=== PATIENT | male | born 1955 | race Caucasian/White ===

== ENCOUNTER → 2016-11-26 | Outpatient (CLI) | payer OTHER ==
[~2016-11-26] MED LIST: ASCA500 PO; ASPI1TAB83 PO; CARV25TA2 PO; DVN/160 PO; FLCO60 TOP; MELO15TA4 PO
[2016-11-26 13:32] LABS: BASO % 0.7 %; BASO ABS # 0.05 K/uL (0-0.2); COMPLETE YES; EOS % 3.3 %; HEMATOCRIT 44.4 % (42-52); IG% 0.4 %; LYMPH % 24.3 %; LYMPH ABS # 1.71 K/uL (1.2-3.4); MEAN CELL VOLUME 93.9 fL (80-100); MEAN CORPUSCULAR HEMOGLOBIN 31.9 pg (25-34); MONO % 8.4 %; NEUT % 62.9 %; PLATELET COUNT 150 K/uL (130-400); RED BLOOD COUNT 4.73 M/uL (4.7-6.1); WHITE BLOOD COUNT 7.04 K/uL (4.8-10.8)
[2016-11-26 13:50] LABS: ALT/SGPT 23 U/L (12-78); AST/SGOT 11 U/L (15-37); BLOOD UREA NITROGEN 13 mg/dl (7-18); BUN/CREATININE RATIO 16.4 (10-20); CALCIUM 8.9 mg/dl (8.5-10.1); CARBON DIOXIDE 27 mmol/L (21-32); CHLORIDE 108 mmol/L (98-107); CREATININE 0.82 mg/dl (0.60-1.40); GLUCOSE 123 mg/dl (70-99); POTASSIUM 4.3 mmol/L (3.5-5.1); SODIUM 139 mmol/L (136-145)
[2016-11-26 13:55] LABS: ALB/GLOB RATIO 1.5 (0.9-2); ALKALINE PHOSPHATASE 79 U/L (45-117); CHOLESTEROL 164 mg/dl (0-200); CHOLESTEROL/HDL RATIO 2.6; HDL CHOLESTEROL 63 mg/dl; LDL CHOLESTEROL CALCULATED 87 mg/dl; TRIGLYCERIDES 68 mg/dl (0-150); VERY LOW DENSITY LIPOPROT CALC 14 mg/dl
[2016-11-26 14:43] LABS: ESTIMATED AVERAGE GLUCOSE 117 mg/dl; HA1C FLAG Normal (Normal)
== END | disposition home or self-care (01) ==
LOC: C.LABBC 09:30
PROVIDERS: ATTEND Internal Medicine
DX: Z00.00 Encounter for general adult medical examination without abnormal findings (principal); F10.10 Alcohol abuse, uncomplicated; M19.90 Unspecified osteoarthritis, unspecified site; I10 Essential (primary) hypertension; Z12.5 Encounter for screening for malignant neoplasm of prostate; R73.9 Hyperglycemia, unspecified; Z11.59 Encounter for screening for other viral diseases

== ENCOUNTER 2023-02-25 10:18 | Observation (INO) ==
--- NOTE | 2023-01-12 12:10 | PAT Medication Instructions ---
Medication Instructions Date of Service January 12, 2023 Home Medications Medication Instructions Recorded atorvastatin 10 mg tablet 10 mg PO QAM #90 tabs 07/05/22 pantoprazole 40 mg tablet,delayed See Rx Instructions .Route 07/16/22 release .COMPLEX #180 tabs losartan 100 See Rx Instructions .Route 09/06/22 mg-hydrochlorothiazide 25 mg tablet .COMPLEX #90 tabs carvedilol 25 mg tablet See Rx Instructions .Route 10/04/22 .COMPLEX #180 tabs aspirin 81 mg tablet 81 mg PO QPM acetaminophen 650 mg tablet,extended release (Tylenol Arthritis Pain) 650 mg PO UD PRN Pain fluocinonide 0.05 % topical cream 1 applic topical UD PRN EXZEMA loratadine 10 mg capsule 10 mg PO UD PRN SEASONAL ALLERGIES atorvastatin 10 mg tablet 10 mg PO QAM pantoprazole 40 mg tablet,delayed release See Rx Instructions .Route .COMPLEX losartan 100 mg-hydrochlorothiazide 25 mg tablet See Rx Instructions .Route .COMPLEX carvedilol 25 mg tablet See Rx Instructions .Route .COMPLEX ibuprofen 200 mg tablet 200 mg PO Q6H PRN Pain ASK your surgeon for instructions ibuprofen 200 mg tablet 200 mg PO Q6H PRN Pain STOP taking 24 hours before surgery fluocinonide 0.05 % topical cream 1 applic topical UD PRN EXZEMA DO NOT take the morning of surgery loratadine 10 mg capsule 10 mg PO UD PRN SEASONAL ALLERGIES losartan 100 mg-hydrochlorothiazide 25 mg tablet See Rx Instructions .Route .COMPLEX Take morning of surgery With a small sip of water, OTHERWISE NOTHING TO EAT OR DRINK AFTER MIDNIGHT: acetaminophen 650 mg tablet,extended release (Tylenol Arthritis Pain) 650 mg PO UD PRN Pain (if needed) atorvastatin 10 mg tablet 10 mg PO QAM pantoprazole 40 mg tablet,delayed release See Rx Instructions .Route .COMPLEX carvedilol 25 mg tablet See Rx Instructions .Route .COMPLEX Take evening before surgery aspirin 81 mg tablet 81 mg PO QPM (continue as normal unless told otherwise by surgeon) acetaminophen 650 mg tablet,extended release (Tylenol Arthritis Pain) 650 mg PO UD PRN Pain (if needed) loratadine 10 mg capsule 10 mg PO UD PRN SEASONAL ALLERGIES (if needed) pantoprazole 40 mg tablet,delayed release See Rx Instructions .Route .COMPLEX carvedilol 25 mg tablet See Rx Instructions .Route .COMPLEX Other Notes If you have any questions please call us at [phone] or [phone] or [phone] or [phone]
--- NOTE | 2023-01-17 08:24 | Anesthesiology Consultation ---
Date of Service January 17, 2023 Assessment & Plan (1) Encounter for pre-operative examination: - awaiting [facility] pre-operative evaluation being scheduled and completed and [place] [facility] 01/25/23 pre-operative evaluation. - EF 35-40% per remote cardiology records, no available echo, no cardiology evaluation. PCP pre-operative evaluation 01/25/23. Patient confirms he is no longer following with cardiology and has not had further testing since last seeing cardiology. Case discussed in detail with Dr. Gao who advised patient will need a cardiology evaluation prior to surgery. Patient was made aware of this at PAT appointment. He verbalized understanding and agreement, would like to establish care with [facility]. Surgeon's office made aware. - combativeness after anesthesia. Marked on OR sheet. - alcohol dependence: 6 beers daily. - anticipated difficult intubation: severely limited cervical extension s/p cervical spine surgery, small oral opening and Mallampati 3. - Outpatient joint assessment: Patient is currently scheduled for inpatient pathway. If re-evaluated and patient/surgeon requests outpatient pathway, patient is not recommended candidate for outpatient joint program from anesthesia standpoint based on current available information. Chart Review Chart Review: Pending: Refer to Additional Notes / Consult section and Patient seen in Pre Admission Testing Teaching & Discussion Pre-Anesthesia Teaching/Discussion Notes: Instructed NPO after midnight before surgery, except medications with 15 cc of water. Medication instructions provided according to the [facility] guidelines. History Surgery Operation Date: 02/25/23 09:00 Proposed Procedures p Left Total Knee Arthroplasty - Benjamin Pollock, Height/Weight Height: 5 ft 10 in Weight: 95.8 kg Allergies Allergy/AdvReac Type Severity Reaction Status Date / Time No Known Allergies Allergy Verified 01/11/23 07:35 Medications Home Medications Medication Instructions Recorded Confirmed Last Taken aspirin 81 mg tablet 81 mg PO QPM 12/28/18 01/11/23 01/27/21 08:00 acetaminophen 650 mg 650 mg PO UD PRN Pain 01/22/21 01/11/23 Unknown tablet,extended release (Tylenol Arthritis Pain) fluocinonide 0.05 % topical cream 1 applic topical UD PRN EXZEMA 01/22/21 01/11/23 Unknown loratadine 10 mg capsule 10 mg PO UD PRN SEASONAL ALLERGIES 01/22/21 01/11/23 Unknown atorvastatin 10 mg tablet 10 mg PO QAM #90 tabs 07/05/22 01/11/23 Unknown pantoprazole 40 mg tablet,delayed See Rx Instructions .Route 07/16/22 01/11/23 Unknown release .COMPLEX #180 tabs losartan 100 See Rx Instructions .Route 09/06/22 01/11/23 Unknown mg-hydrochlorothiazide 25 mg tablet .COMPLEX #90 tabs carvedilol 25 mg tablet See Rx Instructions .Route 10/04/22 01/11/23 Unknown .COMPLEX #180 tabs ibuprofen 200 mg tablet 200 mg PO Q6H PRN Pain 01/11/23 01/11/23 Unknown Past Medical History Medical History (Updated 01/17/23 @ 08:48 by Nicole Zapata PA-C) Acid reflux controlled, stable per pt BMI 31.0-31.9,adult Cardiomyopathy, nonischemic EF < 40% per remote records Essential hypertension controlled, stable per pt Expected difficult intubation severely limited cervical extension s/p cervical spine surgery, small oral opening and Mallampati 3. History of anesthesia reaction very combative after cervical fusion History of colon polyps Hyperlipidemia Inguinal hernia stable per pt Lumbosacral radiculopathy at S1 Non-occlusive coronary artery disease does not follow w/ cardio Patient denies h/o stroke, seizures, heart attack, DM, blood clots/DVTs or blood transfusions. Exercise / Class Metabolic Activity III < 4 Walking/Shop/Light housework (less than 8 steps in home, denies chest discomfort or shortness of breath with usual activities) Past Family History Family History Father Throat cancer Alcohol abuse Cardiac disorder Hypertension Sister Alcohol abuse Other Family history of diabetes mellitus Myocardial infarction Past Surgical History Surgical History History of cardiac cath 2006 ? , HIGH BLOOD PRESSURE...NO STENTS History of cataract surgery BILATERAL History of esophagogastroduodenoscopy (EGD) History of fusion of cervical spine 1970 AND 1971/ LIMITED ROM History of total knee replacement 2001, RIGHT Hx of colonoscopy Past Anesthesia History No Family Hx of Anesthesia Complications and Other (combativeness after anesthesia) History of PONV No Hx of PONV and No Hx of Motion Sickness Social History Smoking Status: Current every day smoker tobacco type: cigars Smoking cigarettes per day: "TINY ONES" 3 PER DAY / ADVISED NPO Do You Dip or Chew Tobacco: No (HX OF , NOT CURRENT) Hx Alcohol Use: Yes ("6 pack per day") Alcohol type: beer alcohol intake frequency: 3 or more drinks per day (denies withdrawal, denies h/o DTs or seizures) Hx Substance Use: No substance use type: does not use Review of Systems Rare palpitations with caffeine intake, chronic, denies change or worsening. Patient denies chest pain, shortness of breath, dyspnea on exertion, snoring, witnessed apneas, fever, chills, cough, or wheezing. Physical Exam Vital Signs Vitals BP 138/88 P 70 TEMP 97.9 SP02 96% on RA RESP 18 Physical Patient resting comfortably in chair in no acute distress, alert and oriented, responding appropriately throughout visit Severely limited cervical extension range of motion without pain TMD < 3 finger breadths Mallampati Score 3, small oral opening Dentition: several caps/crowns, denies chipped or loose teeth, implants or bridges Lungs: normal respiratory effort. Good air movement, clear throughout to auscultation, no adventitious breath sounds Cardiac: regular rate and rhythm, no murmurs noted Carotid arteries: negative bruit bilat Lab Results Anesthesia Preop Results Results Anesthesia Widget: WBC 9.49 K/ul (4.8-10.8) 01/17/23 Hgb 14.2 g/dl (14.0-18.0) 01/17/23 Hct 40.9 % (42.0-52.0) L 01/17/23 Plt 164 K/uL (130-400) 01/17/23 Na 136 mmol/L (136-145) 01/17/23 K 3.4 mmol/L (3.5-5.1) L 01/17/23 Cl 101 mmol/L (98-107) 01/17/23 CO2 30 mmol/L (21-32) 01/17/23 BUN 13 mg/dl (6-23) 01/17/23 Creat 0.60 mg/dl (0.6-1.4) 01/17/23 Glucose Level 106 mg/dl (70-99(Fasting)) H 01/17/23 PT 10.8 Seconds (9.0-12.0) 01/17/23 PTT 29.1 Seconds (21.0-31.0) 01/17/23 INR 1.0 (0.9-1.1) 01/17/23 Blood Type O Negative 01/17/23 Antibody Screen NEGATIVE 01/17/23 Testing Electrocardiogram Date: 01/17/23 NSR, rate 67 bpm Voltage criteria for LVH Minor nonspecific ST abnormality inferior leads Chest X-Ray Date: 01/17/23 No active disease in the chest
--- NOTE | 2023-02-24 06:46 | History & Physical Report ---
Date of Service February 24, 2023 Assessment & Plan (1) Osteoarthritis of left knee: We will proceed with a left total knee arthroplasty. Postoperatively he will be started on aspirin for DVT prophylaxis and kept overnight in the hospital for postop medical management. He plans to go to inpatient rehab upon discharge. History of Present Illness Chief Complaint: Osteoarthritis of the left knee. Primary Care Provider: Aaron Miller, ALVIN, RADHA Melvin is a pleasant 67-year-old male who has been dealing with chronic increase in left knee pain. He has a history of a right knee replacement done in 2001 in [place]. He has done well with that. Unfortunately, he is dealing with a lot of increasing left knee pain. He is having trouble going long distances. He is having trouble going up and down stairs. It hurts him all the time. It is starting to bother his hip and his back. He has been taking anti- inflammatories. He has had injections by other providers. He is really struggling with his left knee. X-rays and clinical examination been diagnostic for advanced osteoarthritis of the left knee. After failed conservative treatment, he has elected to proceed with a left total knee arthroplasty. Allergies Allergy/AdvReac Type Severity Reaction Status Date / Time No Known Allergies Allergy Verified 02/04/23 09:28 Home Medications Medication Instructions Recorded Confirmed Type aspirin 81 mg tablet 81 mg PO QPM 12/28/18 02/04/23 History acetaminophen 650 mg 650 mg PO UD PRN Pain 01/22/21 02/04/23 History tablet,extended release (Tylenol Arthritis Pain) fluocinonide 0.05 % topical cream 1 applic topical UD PRN EXZEMA 01/22/21 02/04/23 History loratadine 10 mg capsule 10 mg PO UD PRN SEASONAL ALLERGIES 01/22/21 02/04/23 History atorvastatin 10 mg tablet 10 mg PO QAM #90 tabs 07/05/22 02/04/23 Rx pantoprazole 40 mg tablet,delayed See Rx Instructions .Route 07/16/22 02/04/23 Rx release .COMPLEX #180 tabs losartan 100 See Rx Instructions .Route 09/06/22 02/04/23 Rx mg-hydrochlorothiazide 25 mg tablet .COMPLEX #90 tabs carvedilol 25 mg tablet See Rx Instructions .Route 10/04/22 02/04/23 Rx .COMPLEX #180 tabs ibuprofen 200 mg tablet 200 mg PO Q6H PRN Pain 01/11/23 02/04/23 History diph,pertuss(acel),tet vac(PF) 2 0.5 ml IM ONCE #0.5 mL 01/25/23 02/04/23 Rx Lf-(2.5-5-3-5mcg)-5 Lf/0.5 mL IM syringe (Adacel (Tdap Adolesn/Adult)(PF)) Past Med/Surg History Medical History Acid reflux controlled, stable per pt BMI 31.0-31.9,adult Cardiomyopathy, nonischemic EF < 40% per remote records Colon polyps Essential hypertension controlled, stable per pt Expected difficult intubation severely limited cervical extension s/p cervical spine surgery, small oral opening and Mallampati 3. History of anesthesia reaction very combative after cervical fusion History of colon polyps Hyperlipidemia Ileitis Inguinal hernia stable per pt Lumbosacral radiculopathy at S1 Non-occlusive coronary artery disease Surgical History History of cardiac cath 2006 ? , HIGH BLOOD PRESSURE...NO STENTS History of cataract surgery BILATERAL History of esophagogastroduodenoscopy (EGD) History of fusion of cervical spine 1970 AND 1971/ LIMITED ROM History of total knee replacement 2001, RIGHT Hx of colonoscopy Family History Father Throat cancer Alcohol abuse Cardiac disorder Hypertension Sister Alcohol abuse Other Family history of diabetes mellitus Myocardial infarction Social History Smoking Status: Current every day smoker Tobacco Type: Cigarettes Age Started Using Tobacco: 16; Cigarettes Per Day: "TINY ONES" 3 PER DAY / ADVISED NPO; Second Hand Exposure: Yes (IN THE PAST); Do You Dip or Chew Tobacco: No (HX OF , NOT CURRENT); Hx Alcohol Use: Yes ("6 pack per day") Alcohol type: beer Alcohol Intake Frequency Comment: 5 PER DAY/30 PER WEEK Hx Substance Use: No Preferred Language: Armenian Communication Ability: Effective Visual Impairment: No Limitations Hearing Ability: Normal [employer] Required: No Beliefs That Will Affect Care: None marital status: Current Living Situation: Alone current occupational status: employed current occupation: SELF EMPLOYED Feels Safe at Home: Yes Childhood Exposure to Second-Hand Smoke: Yes Dental Care, Regularly: Yes Physical Activity Frequency: Does not Exercise Seatbelt Use: never Sunscreen Use: No Assistive Devices: None Review of Systems All systems reviewed & are unremarkable except as noted in HPI & below. Physical Exam On physical examination left knee, he has a slight varus deformity. He has tenderness palpation of the distal medial femoral condyle and over the medial joint line.. Constitutional WD/WN, vitals as above Eyes PERRL, conjunctivae normal, anicteric sclerae ENMT external ear and nose normal, oropharynx normal Neck trachea midline, no thyromegaly Respiratory normal respiratory effort, lungs clear to auscultation Cardiovascular RRR, no murmur, no edema Gastrointestinal (Abdomen) normal bowel sounds, soft, nontender, no hepatosplenomegaly Skin no rashes, warm and dry Psychiatric A+Ox3, euthymic affect Results & Data Results & Data Laboratory Results . Diagnostic Findings X-rays of the left knee show advanced osteoarthritis with joint space narrowing, osteophyte formation, and [id number] articulation. PG Care Time/CCT Total # of Minutes Spent Total Time Spent with Patient: Total time spent is greater than 50% in coordination of care (as documented) at patient's floor/unit and/or counseling patient: Coding Level of Care Code None Diagnoses Osteoarthritis of left knee M17.12
[~2023-02-25 10:18] MED LIST changes: +ACETAMINOPHEN 500 MG TAB PO SCH; -ASCA500 PO; -ASPI1TAB83 PO; -CARV25TA2 PO; -DVN/160 PO; +FAMOTIDINE 20 MG TAB PO SCH; -FLCO60 TOP; +GABAPENTIN 300 MG CAP PO SCH; +Ketorolac (*for OR use only*) 30 MG, dexAMETHasone 4 MG, KETAMINE HCL (**OR use only) 1... INFIL SCH; +LR 500ML BOLUS, THEN 15ML/HR IV SCH; +LR 60ML/HR IV SCH; -MELO15TA4 PO; +ROPIVACAINE 0.5% 5 MG/ML 30 ML VIAL ONE; +TRANEXAMIC ACID 1,000 MG **IV Intra-op IV SCH; +TRANEXAMIC ACID 1,000 MG **IV Pre-op IV SCH; +ceFAZolin 2000MG 2,000 MG/15 ML SYR IV SCH; +dexAMETHasone 4 MG TAB PO SCH
[2023-02-25] MEDS ORDERED: LIDOCAINE 2% 2 ML VIAL/AMP(20MG/ML) INFIL ONE (10:54)
[2023-02-25] MEDS ORDERED: MIDAZOLAM HCL 1 MG/ML 2ML VIAL ONE ×2 (10:54→12:51)
[2023-02-25] MEDS ORDERED: ONDANSETRON INJ 2 MG/ML 2 ML VIAL ONE (10:54)
[2023-02-25] MEDS ORDERED: PROPOFOL IV EMULSION 10 MG/ML 20 ML VIAL IV ONE ×3 (10:54→13:27)
[2023-02-25] MEDS ORDERED: GLYCOPYRROLATE 0.2 MG/ML VIAL ONE (10:54)
[2023-02-25] MEDS ORDERED: KETOROLAC 30 MG/ML VIAL IV PRN (11:31)
[2023-02-25] MEDS ORDERED: ePHEDrine sulfate 50 MG/ML AMP IV PRN (11:31)
[2023-02-25] MEDS ORDERED: ATROPINE SULFATE 0.1 MG/ML 10ML SYR IV PRN (11:31)
[2023-02-25] MEDS ORDERED: ONDANSETRON INJ 2 MG/ML 2 ML VIAL IV PRN ×2 (11:31→16:57)
--- NOTE | 2023-02-25 11:35 | History & Physical Bridge Note ---
Date of Service February 25, 2023 History & Physical Bridge Note I have examined the patient, reviewed the History & Physical and in the interval since the performance of the History & Physical I have noted the following changes of clinical significance: no changes noted
[2023-02-25] MEDS ORDERED: ORTHO JOINT ANESTHETIC ONE (12:10)
[2023-02-25] MEDS ORDERED: KETOROLAC 30 MG/ML VIAL ONE (13:35)
[2023-02-25] MEDS ORDERED: DexMEDEtomidine HCL IV 100 MCG/ML VIAL IV ONE (13:45)
[2023-02-25] MEDS: HYDROmorphone INJ 1 MG/ML SYRINGE IV PRN ×3 (14:45→15:10)
--- NOTE | 2023-02-25 15:15 | Anesthesiology Progress Note ---
Date of Service February 25, 2023 Anesthesia Post Procedure Vital Signs Vital Signs: Temp Pulse Pulse Resp BP Pulse Ox O2 Del Method 02/25/23 15:00 90 18 138/94 94 Room Air 02/25/23 14:50 94 H 15 136/88 93 Room Air 02/25/23 14:40 93 H 22 131/86 96 Room Air 02/25/23 14:30 90 17 142/89 H 97 Oxymask 02/25/23 14:21 36.2 C L 91 H 16 130/85 98 Oxymask 02/25/23 10:43 36.7 C 89 18 175/102 H 96 Room Air O2 Flow Rate 02/25/23 15:00 02/25/23 14:50 02/25/23 14:40 02/25/23 14:30 3 02/25/23 14:21 6 02/25/23 10:43 Pain Intensity Left Knee: Pain Intensity: 0 Left Shoulder: Pain Intensity: 7 Transfer of Care Handoff Completed per policy Notes Mental Status: alert / awake / arousable Patient Amnestic to Procedure: Yes Nausea / Vomiting: adequately controlled Pain: adequately controlled Airway Patency, RR, SpO2: stable & adequate BP & HR: stable & adequate Hydration State: stable & adequate Neuraxial Anesthesia: was administered and sensory block is resolving Anesthetic Complications: no major complications apparent
--- NOTE | 2023-02-25 15:38 | XRay Report ---
XR knee LT 1 or 2V routine CLINICAL HISTORY: Surgical Post Op TECHNIQUE: 2 views of the left knee were obtained. Comparison: Comparison is made to knee radiographs 12/14/2022 FINDINGS: Patient is status post total knee arthroplasty with expected postsurgical changes including soft tiss ue swelling and subcutaneous emphysema. No periarticular lucency or hardware fracture is seen. IMPRESSION: Expected postoperative appearance status post placement of total knee arthroplasty. ACT 112: Negative or not required by law. Electronically signed by: Amadou Elaine M.D. 02/25/2023 3:36 PM
[2023-02-25] MEDS ORDERED: NALOXONE HCL 0.4 MG/1 ML VIAL/CARP IV PRN (16:57)
[2023-02-25] MEDS ORDERED: HYDROmorphone INJ 0.5 MG/0.5 ML SYR IV PRN (16:57)
[2023-02-25] MEDS ORDERED: bisacodyL 10 MG SUPP PR PRN (16:57)
[2023-02-25] MEDS ORDERED: FLUOCINONIDE 0.05% CR 15 GM TUBE EXT PRN (16:57)
[2023-02-25] MEDS ORDERED: METOCLOPRAMIDE HCL INJ 5 MG/ML 2 ML VIAL IV PRN (16:57)
[2023-02-25] MEDS ORDERED: MAGNESIUM HYDROXIDE SUSP 30 ML UDC PO PRN (16:57)
[2023-02-25] MEDS ORDERED: LORATADINE 10 MG TAB PO PRN (17:02)
[2023-02-25] MEDS: KETOROLAC TROMETHAMINE 15 MG/ML VIAL IV SCH (18:10)
[2023-02-25] MEDS: SODIUM CHLORIDE 0.9% 1,000 ML IV SCH ×2 (18:11→23:53)
[2023-02-25] MEDS: LOSARTAN/HCTZ 50/12.5MG TAB PO SCH (18:12)
[2023-02-25] MEDS: carvediloL 25 MG TAB PO SCH (18:12)
[2023-02-25] MEDS: oxyCODONE HCL IR 5 MG TAB (IMMEDIATE RELEASE) PO PRN (19:37)
[2023-02-25] MEDS: ASPIRIN 81 MG ECTAB PO SCH (20:03)
[2023-02-25] MEDS: ACETAMINOPHEN 500 MG TAB PO SCH (20:03)
[2023-02-25] MEDS: DOCUSATE SODIUM 100 MG CAP PO SCH (20:04)
[2023-02-25] MEDS: ceFAZolin 2000MG 2,000 MG/15 ML SYR IV SCH (20:55)
[2023-02-25] MEDS ORDERED: SENNA 8.6 MG TAB PO SCH (21:00)
[2023-02-26] MEDS: KETOROLAC TROMETHAMINE 15 MG/ML VIAL IV SCH ×2 (00:26→05:10)
[2023-02-26] MEDS: oxyCODONE HCL IR 5 MG TAB (IMMEDIATE RELEASE) PO PRN ×3 (00:27→11:36)
[2023-02-26] MEDS: ceFAZolin 2000MG 2,000 MG/15 ML SYR IV SCH (05:10)
[2023-02-26] MEDS: ACETAMINOPHEN 500 MG TAB PO SCH (05:11)
[2023-02-26] MEDS ORDERED: dexAMETHasone 4 MG TAB PO SCH (08:00)
--- NOTE | 2023-02-26 08:33 | Discharge Summary ---
Date of Service February 26, 2023 Admission HPI (Per Admitting) Melvin is a pleasant 67-year-old male who has been dealing with chronic increase in left knee pain. He has a history of a right knee replacement done in 2001 in [place]. He has done well with that. Unfortunately, he is dealing with a lot of increasing left knee pain. He is having trouble going long distances. He is having trouble going up and down stairs. It hurts him all the time. It is starting to bother his hip and his back. He has been taking anti- inflammatories. He has had injections by other providers. He is really struggling with his left knee. X-rays and clinical examination been diagnostic for advanced osteoarthritis of the left knee. After failed conservative treatment, he has elected to proceed with a left total knee arthroplasty. Admission Exam (Per Admitting) On physical examination left knee, he has a slight varus deformity. He has tenderness palpation of the distal medial femoral condyle and over the medial joint line.. Principal Diagnosis Same as "Discharge Diagnosis" noted below under Discharge Instructions. Discharge Exam On physical examination of the left knee, the dressing is clean and dry. His leg is out full extension. He is active dorsiflexion plantarflexion of his left ankle. Discharge Data Procedures Performed Operation Date: 02/25/23 12:00 Actual Procedures p Left Total Knee Arthroplasty(Left) - Benjamin Pollock DO Ordered Studies 02/25/23 05:00 US - OR guided needle placemen Routine Hospital Course (1) Status post left knee replacement: On February 25, 2023 Valdez arrived at [facility] and underwent a left knee replacement without complication. He had a spinal anesthetic. Postop eratively he was started on aspirin for DVT prophylaxis and transferred to the general orthopedic floors. His hospital course was uneventful. On postop day #1, his vital signs were stable and his pain was well controlled. He was able to participate well with physical therapy doing ambulation and range of motion exercises. He was then discharged home. He will follow-up with orthopedics in 2 weeks. PG Care Time/CCT Total # of Minutes Spent Total Time Spent with Patient: Total time spent is greater than 50% in coordination of care (as documented) at patient's floor/unit and/or counseling patient: Discharge Plan Discharge Items Patient Disposition: Home - Home Health Services Reason For Visit: POST OP Discharge Diagnosis: Left knee replacement Activity: Per Instructions section Non-emergency contact: Surgeon Call non-emergency contact if: your wound has increased redness and your wound has increased drainage Follow-up/Referrals: Aaron Miller III, CRNP [Primary Care Provider] - Diet: Regular Addtl Attending Provider Instructions: Activity and Therapy Recommendations: * If you are using [facility] then therapy will be provided at your home until they feel you have accomplished all of your goals. * If you are using [facility] then Physical Therapy will be provided until they feel you are ready to start Outpatient Physical Therapy. * If you are not using home therapy then Outpatient Physical Therapy should start about 3-5 days from your day of surgery. Therapy will last about 6-10 weeks * It is important not to put a pillow under your knee when you are relaxing or sleeping. It is just as important to make sure you are getting your knee perfectly straight as it is to regain your knee bend. * You were shown a series of exercises in the hospital. Do these exercises three times each day including the exercises you were shown in physical therapy. * Get up and walk several times each day. For the first four weeks, try not to stand or walk for more than one hour at a time. If you do stand or walk for more than one hour, you will not hurt anything, but your leg will likely swell. * As you feel comfortable, you may change from the walker or crutches to a cane and then to independent walking. Medications: * Narcotic You will likely be sent home from the hospital with a prescription for the narcotic pain medication that worked best throughout your stay. * Aspirin Most patients will be required to take Aspirin 81mg twice a day for 6 weeks after surgery. This is obtained [id number] and a prescription is not necessary. * Cefadroxil -take the antibiotic twice a day for 10 days to help prevent infections. * Other medications may be prescribed for specific circumstances. If you have any questions, please call the office at . * Resume previous home medications unless otherwise instructed TEDs/Elastic Stockings: The white elastic stockings help limit swelling and prevent blood clots from forming in your legs.~ The more you wear them, the more they work. Wear them for six weeks. Dressing Care: The dressing can be changed after physical therapy on postop day #1. Daily dry dressing changes for a few days, especially if the incision is still draining some. If the incision is not draining then you may leave the thaddeus open to air. If there is a little bit of drainage or if the thaddeus are getting stuck on your clothing then cover the incision with a dry dressing. The thaddeus will be removed at your 2 week follow-up appointment. Showering: You may shower 5 days from the day of surgery as long as the incision is no longer draining. You may shower with the thaddeus exposed. Let soapy water run over the thaddeus and pat them dry. Do not scrub or soak the incision. Things To Watch For: * Drainage from the incision site that occurs more than one week after your surgery. * Increased redness at the incision site. * Fever above 102 degrees Fahrenheit. * Unusual chest pain or shortness of breath. * Call [facility] at with any of the above problems Follow-Up Visit: Follow-up with Dr. Pollock's PA (Benjamin Pelayo) 2-3 weeks after your day of surgery. He will remove your thaddeus and answer any questions. If you have any additional questions or concerns, Dr Pollock is usually in the office at the same time and will be available An appointment was probably scheduled when you signed-up for surgery in the office. If you have any questions call Office Instructions: More detailed instructions as well as Frequently Asked Questions were provided in a folder by our office when you signed-up for surgery. Please review these instructions when you get home. If you have any further questions or concerns, please feel free to call the office at [phone] Pending Studies at Discharge: No Stand-Alone Forms: My [facility] Medications and DC Order Prescriptions: New oxycodone 5 mg Tablet 5 mg PO Q4H PRN (Reason: pain) Qty: 30 0RF cefadroxil 500 mg capsule 500 mg PO BID 10 Days Qty: 20 0RF aspirin 81 mg Tablet,Delayed Release (Dr/Ec) 81 mg PO BID 42 Days Qty: 84 0RF Continued atorvastatin 10 mg tablet 10 mg PO QAM Qty: 90 3RF pantoprazole 40 mg tablet,delayed release (DR/EC) See Rx Instructions .ROUTE .COMPLEX Qty: 180 3RF Dose Instruction: TAKE 1 TABLET BY MOUTH TWICE A DAY Rx Instructions: TAKE 1 TABLET BY MOUTH TWICE A DAY losartan-hydrochlorothiazide 100-25 mg tablet See Rx Instructions .ROUTE .COMPLEX Qty: 90 2RF Dose Instruction: TAKE 1 TABLET BY MOUTH EVERY DAY Rx Instructions: TAKE 1 TABLET BY MOUTH EVERY DAY carvedilol 25 mg tablet See Rx Instructions .ROUTE .COMPLEX Qty: 180 3RF Dose Instruction: TAKE 1 TABLET BY MOUTH TWICE A DAY Rx Instructions: TAKE 1 TABLET BY MOUTH TWICE A DAY Adacel(Tdap Adolesn/Adult)(PF) 2 Lf-(2.5-5-3-5 mcg)-5Lf/0.5 mL syringe 0.5 ml IM ONCE Qty: 0.5 0RF acetaminophen [Tylenol Arthritis Pain] 650 mg Tablet Extended Release 650 mg PO UD PRN (Reason: Pain) loratadine 10 mg Capsule 10 mg PO UD PRN (Reason: SEASONAL ALLERGIES) fluocinonide 0.05 % cream 1 applic topical UD PRN (Reason: EXZEMA) ibuprofen 200 mg Tablet 200 mg PO Q6H PRN (Reason: Pain) Discontinued aspirin 81 mg tablet 81 mg PO QPM Patient Comments: Admission Data Admit Date/Time: 02/25/23 14:22 Attending Provider: Benjamin Pollock Admit Provider: Benjamin Pollock Primary Care Provider: Aaron Miller III
--- NOTE | 2023-02-26 08:33 | Orthopedic Progress Note ---
Date of Service February 26, 2023 Assessment & Plan (1) Status post left knee replacement: Overall he is doing very well. He is not having much pain in the left knee. He will be seen by physical therapy today for ambulation and range of motion exercises. He is on aspirin for DVT prophylaxis. He can be discharged home later today. He will follow-up with orthopedics in 2 weeks. Amanda Kellogg was seen examined at bedside this morning. Overall is doing very well. He is not having too much pain in the right knee. He has been up and ambulating. He has no complaints.. Review of Systems All systems reviewed & are unremarkable except as noted in HPI & below. Physical Exam On physical examination of the left knee, the dressing is clean and dry. His leg is out full extension. He is active dorsiflexion plantarflexion of his left ankle. Results & Data Results & Data Laboratory Results . Diagnostic Findings Postoperative x-rays of the left knee show the prosthesis to be in anatomic alignment without any evidence of fracture complication, or loosening.. PG Care Time/CCT Total # of Minutes Spent Total Time Spent with Patient: Total time spent is greater than 50% in coordination of care (as documented) at patient's floor/unit and/or counseling patient: Coding Level of Care Code 06194 Post Operative Follow-Up Diagnoses Status post left knee replacement Z96.652
[2023-02-26] MEDS ORDERED: MULTIVITAMIN TAB PO SCH (09:00)
[2023-02-26] MEDS ORDERED: ATORVASTATIN 10 MG TAB PO SCH (09:00)
[2023-02-26] MEDS: carvediloL 25 MG TAB PO SCH (09:35)
[2023-02-26] MEDS: ASPIRIN 81 MG ECTAB PO SCH (09:36)
[2023-02-26] MEDS: DOCUSATE SODIUM 100 MG CAP PO SCH (09:37)
[2023-02-26] MEDS: LOSARTAN/HCTZ 50/12.5MG TAB PO SCH (09:38)
--- NOTE | 2023-03-09 16:33 | Operative Report ---
PG Post Operative Report Pre & Post Diagnosis Operation Date: 02/25/23 12:00 Pre-Op Diagnosis: Degenerative Joint Disease Knee Left Post-Op Diagnosis: Degenerative Joint Disease Knee Left I identified the patient and participated in the time-out.: Yes Procedure Operation Date: 02/25/23 12:00 Actual Procedures p Left Total Knee Arthroplasty(Left) - Benjamin Pollock DO Surgeon Benjamin Pollock DO Brim Molder Benjamin Pelayo PA-C Estimated Blood Loss 30 Findings Consistent with Post-Op Diagnosis Specimens Left femoral tibial bone Description of Procedure Implants used: I used a Rivera Persona total knee arthroplasty system with a size 10 femur, F tibia, 31 oval patella, and a size 14 CPS polyethylene bearing. All components were cemented in place with Biomet cement. Valdez arrived [facility] for the above procedure. He was seen in the preoperative holding area and the operative extremity was identified and signed. He was given a preoperative antibiotic, TXA, a spinal anesthetic and an adductor nerve block. He was taken back to the operating room and laid on the table in supine position. He was given basic sedation. The operative knee was then prepped and draped in sterile fashion. A timeout was done, and the patient and the operative extremity was properly identified. A midline incision was made directly over the patella. Dissection was taken down to the extensor mechanism. A midvastus arthrotomy was used. The medial retinaculum was released and the fat pad was mostly excised. The knee was flexed and the ACL, PCL, and meniscus were removed. A drill was sent down the center of the femoral canal followed by an intramedullary mila. Off that mila a distal femoral cutting block was placed. 9 mm was resected off the distal femur at 5 of valgus. A posterior referencing AP sizing guide was then placed on the distal femur. The femur measured to be a size 10. 2 drill holes were placed in 3 of external rotation. A 4-in-1 cutting block was then impacted into place. Anterior, posterior, and chamfer cuts were then made. The proximal tibia was then exposed. An external tibial alignment guide was placed. A tibial cut guide was then anchored in place and the proximal tibia was then resected. The posterior aspect of the knee was then opened up and any additional meniscus fragments and osteophytes were removed. The tibia measured to be a size F. The tibial plate was then placed in the appropriate rotation and the tibia was drilled and punched. Trial components were then placed. I used a size 14 CPS polyethylene insert. The knee was brought through a full range of motion and felt to be stable. The peg holes for the femoral component were then drilled. The patella was then everted and 9 mm was resected off the posterior aspect of the patella. The patella measured to be a size 31 oval. 3 peg holes were then drilled. A trial patella was placed. The knee was once again brought through a full range of motion and felt to be stable. Trial components were then removed. The surrounding soft tissues were injected with 100 cc of an orthopedic pain control cocktail. All components were then cemented into place with Biomet cement. The final polyethylene insert was then snapped into place. Once cement was dry the tourniquet was deflated. Hemost asis was obtained. A dilute betadyne lavage was then done for 3 minutes. The joint was then irrigated with normal saline solution. The midvastus arthrotomy was then closed with #1 Vicryl suture. The skin was closed with 2-0 Vicryl, 3- 0V lock suture, and thaddeus. A soft compressive dressing was placed. He was then transferred to a hospital bed and taken to the postanesthesia care unit in stable condition. He tolerated the procedure well. Benjamin Pelayo PA-C, was present for the entire procedure. He was critical for patient positioning, prepping, draping, retraction exposure, wound closure and application of sterile dressing. I attest to the content of the Intraoperative Record and any orders documented therein. Any exceptions are noted below.
== END 2023-02-26 13:07 | disposition home health service (06) ==
LOC: 3N 10:18 → ASU 10:18

== ENCOUNTER 2025-04-10 10:01 | Inpatient (IN) ==
[2025-04-10 11:07] LABS: Hematocrit (blood only) 44.4 % (42.0-52.0); Hemoglobin 14.8 g/dL (14.0-18.0); Immature Granulocytes # (auto) 0.05 K/uL (0.01-0.20); Immature Granulocytes % (auto) 0.5 %; Mean Corpuscular Hemoglobin 31.2 pg (25.0-34.0); Mean Corpuscular Volume 93.7 fL (80.0-100.0); Platelet Count 172 K/uL (130-400); RDW Standard Deviation 49.6 fL (36.4-46.3); Red Blood Count 4.74 M/uL (4.70-6.10); White Blood Count 9.67 K/ul (4.8-10.8)
--- NOTE | 2025-04-10 11:21 | Emergency Department Note ---
ED Provider Note History of Present Illness Chief Complaint: Shortness of Breath/Dyspnea Stated Complaint: STOMACH CRAMPS, BLOATING, TROUBLE BREATHING Time Seen by Provider: 04/10/25 10:25 Source: patient Mode of arrival: ambulatory Limitations: no limitations Patient is a 70-year-old male who presents to the emergency department with complaints of shortness of breath, difficulty breathing and stomach bloating. Patient reports that he has been having stomach cramping and diarrhea intermittently for 2 weeks and today he felt very short of breath and was unable to get across the parking lot without a wheelchair due to his shortness of breath. Patient denies any chest pain. Home Medications Medication Instructions Recorded Confirmed Type acetaminophen 650 mg 650 mg PO UD PRN Pain 01/22/21 04/10/25 History tablet,extended release (Tylenol Arthritis Pain) fluocinonide 0.05 % topical cream 1 applic topical UD PRN EXZEMA 01/22/21 04/10/25 History loratadine 10 mg capsule 10 mg PO DAILY PRN SEASONAL 01/22/21 04/10/25 History ALLERGIES atorvastatin 10 mg tablet 10 mg PO QAM #90 tabs 07/23/24 04/10/25 Rx pantoprazole 40 mg tablet,delayed 40 mg PO BID 01/18/25 04/10/25 History release apixaban 5 mg tablet (Eliquis) 5 mg PO BID #60 tabs 04/13/25 Rx empagliflozin 10 mg tablet 10 mg PO DAILY #30 tabs 04/13/25 Rx (Jardiance) furosemide 40 mg tablet 40 mg PO DAILY #30 tabs 04/13/25 Rx magnesium oxide 400 mg (241.3 mg 400 mg PO QAM #30 tabs 04/13/25 Rx magnesium) tablet metoprolol succinate 50 mg 100 mg (2 x 50 mg) PO BID #60 tabs 04/13/25 Rx tablet,extended release 24 hr potassium chloride 20 mEq 20 meq PO DAILY #30 tabs 04/13/25 Rx tablet,extended release(part/cryst) sacubitril 49 mg-valsartan 51 mg 1 tab PO BID #60 tabs 04/13/25 Rx tablet (Entresto) spironolactone 25 mg tablet 25 mg PO QAM #30 tabs 04/13/25 Rx Allergies Allergy/AdvReac Type Severity Reaction Status Date / Time pollen extracts Allergy Mild Congested Verified 11/10/25 13:01 Past Med/Surg History Problem List (Updated 04/13/25 @ 17:41 by RADHA Chen) SOB (shortness of breath) (Acute) Systolic CHF, chronic Anticoagulant long-term use Constipation Acute CHF (Acute) 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 Gingival swelling Ear pain, referred Radiolucent area in mandible Impacted third molar tooth LVH (left ventricular hypertrophy) Non-occlusive coronary artery disease Nonischemic cardiomyopathy Hyperlipidemia Hypertension Bloating (Acute) Chronic diarrhea Esophageal dysphagia Gastroesophageal reflux disease Impaired glucose metabolism (Chronic) Paresthesia of both feet (Chronic) Hyperglycemia (Chronic) Medical History A-fib pt reports he was sent the [facility] Emergency Room after having his preop ekg and was told him he had a a.fib/abnormal ekg - he thinks it was because he had "lots of coffee" that morning - pt states he was to start on xarelto and pt refused xarelto due to cost, states he was switched to metoprolol but did not like the way it made him feel so he went back to his orginal script of carvedilol from his pcp. pt denies any chest pain/palpitations/sob at this time. CAD (coronary artery disease) LVH (left ventricular hypertrophy) Hypertension History of dysphagia Expected difficult intubation severely limited cervical extension s/p cervical spine surgery, small oral opening and Mallampati 3. History of colon polyps Hyperlipidemia History of anesthesia reaction very combative after cervical fusion Ileitis hx - resolved. Acid reflux controlled, stable per pt Inguinal hernia stable per pt Lumbosacral radiculopathy at S1 Essential hypertension controlled, stable per pt Cardiomyopathy, nonischemic EF < 40% per remote records BMI 31.0-31.9,adult Surgical History H/O oral surgery (01/29/25) Excision of Cyst, Necrotic Bone and Teeth, Lower Right Jaw - Deni Lazcano, DMD S/P knee replacement LEFT 01/2023 History of esophagogastroduodenoscopy (EGD) Hx of colonoscopy History of cardiac cath 2005 ? , HIGH BLOOD PRESSURE...NO STENTS History of total knee replacement 2001, RIGHT History of fusion of cervical spine 1970 AND 1971/ LIMITED ROM History of cataract surgery BILATERAL Family History Father Throat cancer Alcohol abuse Cardiac disorder Hypertension Myocardial infarction Sister Alcohol abuse Other Family history of diabetes mellitus Denies family history of Ovarian cancer Prostate cancer Breast cancer Colorectal cancer Social History Smoking Status: Current every day smoker Tobacco Type: Cigars Age Started Using Tobacco: 16; Cigarettes Per Day: 5-6 cigars per week; Second Hand Exposure: Yes (IN THE PAST); Do You Dip or Chew Tobacco: No (HX OF , NOT CURRENT); Hx Alcohol Use: Yes Alcohol type: beer Alcohol Intake Frequency: 4 or More x per/Week Alcohol Intake Frequency Comment: 5 PER DAY/30 PER WEEK Hx Substance Use: No Preferred Language: Japanese Communication Ability: Effective Visual Impairment: No Limitations Hearing Ability: Hard of Hearing Executive Vice President Required: No Beliefs That Will Affect Care: None marital status: Current Living Situation: Alone current occupational status: employed current occupation: SELF EMPLOYED, contractor How many Children do You have: 2 Feels Safe at Home: Yes Childhood Exposure to Second-Hand Smoke: Yes Diet: regular caffeine: Yes during the past year weight has: decreased > 10 lbs Dental Care, Regularly: Yes Physical Activity Frequency: 5-6 Times per Week Seatbelt Use: never Sunscreen Use: No Assistive Devices: None Physical Exam Vital Signs Vital Signs - 24 hr 04/10/25 10:15 04/10/25 10:37 04/10/25 10:55 Temperature 36.0 C L Temperature Source Skin Pulse Rate 105 H 114 H Respiratory Rate 20 Respiratory Effort / Characteristics Non-Labored Spontaneous Respiratory Depth Normal Respiratory Pattern Regular Blood Pressure 109/68 Blood Pressure Mean 81 Pulse Oximetry 97 96 Oxygen Delivery Method Room Air Room Air Sepsis Recent Fever Within 48 Hours No Sepsis New/Unexplained Change in Mental Status N/A Sepsis Action Taken by Nursing No Action Required 04/10/25 10:57 Temperature Temperature Source Pulse Rate Respiratory Rate Respiratory Effort / Characteristics Respiratory Depth Respiratory Pattern Blood Pressure Blood Pressure Mean Pulse Oximetry 95 Oxygen Delivery Method Room Air Sepsis Recent Fever Within 48 Hours Sepsis New/Unexplained Change in Mental Status Sepsis Action Taken by Nursing VITAL SIGNS - Vital signs and nursing notes were reviewed. GENERAL -70-year-old male appearing their stated age, who is in no acute distress. Communicates well with provider and answers questions appropriately. HEAD - Normocephalic, Atraumatic. No Cheema's Sign or Raccoon's Eyes. No depressed skull fractures palpable. EYES - PERRL with EOMI bilaterally. Sclera anicteric. Conjunctiva pink and moist with no injection noted. NOSE - Midline and without cyanosis. No epistaxis or purulent drainage noted. NECK - Neck with FROM. Supple to palpation. No lymphadenopathy noted. LUNGS - Chest wall symmetric without accessory muscle use, intercostals retractions, or central cyanosis. Normal vesicular breath sounds CTA B/L. No wheezes, rales, or rhonchi appreciated. CARDIAC - RRR with S1/S2. No murmur, rubs, or gallops appreciated. EXTREMITIES -mild bilateral edema present. +5/5 strength noted in UE/LE bilaterally. PSYCH - A&Ox3 and cooperates fully with examiner. Pt is very pleasant and interacts well with examiner Course Administered Medications Discontinued Medications Apixaban (Apixaban 5 Mg Tablet) 5 mg PO BID ALEK Stop: 05/11/25 20:59 Last Admin: 04/13/25 08:46 Dose: 5 mg Documented By: Admin: 04/12/25 20:24 Dose: 5 mg Documented By: alt Admin: 04/12/25 08:36 Dose: 5 mg Documented By: Admin: 04/11/25 20:13 Dose: 5 mg Documented By: KRIS Atorvastatin Calcium (Atorvastatin 10 Mg Tab) 10 mg PO QAM ALEK Stop: 05/11/25 08:59 Last Admin: 04/13/25 08:46 Dose: 10 mg Documented By: Admin: 04/12/25 08:36 Dose: 10 mg Documented By: Admin: 04/11/25 08:53 Dose: 10 mg Documented By: AM Carvedilol (Carvedilol 25 Mg Tab) 25 mg PO BIDM ALEK Stop: 05/11/25 07:59 Last Admin: 04/11/25 08:51 Dose: 25 mg Documented By: AM Chlorhexidine Gluconate (Chlorhexidine Gluconate 0.12% 480 Ml) 15 ml MT BID ALEK Stop: 05/10/25 20:59 Last Admin: 04/13/25 08:46 Dose: 15 ml Documented By: Admin: 04/12/25 20:24 Dose: Not Given Documented By: capo Admin: 04/12/25 08:38 Dose: Not Given Documented By: Admin: 04/11/25 20:11 Dose: Not Given Documented By: Admin: 04/11/25 08:54 Dose: Not Given Documented By: Admin: 04/10/25 20:12 Dose: 15 ml Documented By: ANTHONY Empagliflozin (Empagliflozin 10 Mg Tab) 10 mg PO DAILY ALEK Stop: 05/11/25 14:14 Last Admin: 04/13/25 08:46 Dose: 10 mg Documented By: Admin: 04/12/25 08:37 Dose: 10 mg Documented By: Admin: 04/11/25 15:09 Dose: 10 mg Documented By: AM Enoxaparin Sodium (Enoxaparin Inj 40 Mg/0.4 Ml Syr) 40 mg SQ HS ALEK Stop: 05/10/25 20:59 Last Admin: 04/10/25 20:12 Dose: 40 mg Documented By: ANHTONY Furosemide (Furosemide 40 Mg/4 Ml Vial) 40 mg IV ONE ONE Stop: 04/10/25 13:39 Last Admin: 04/10/25 13:47 Dose: 40 mg Documented By: alexander Furosemide (Furosemide 40 Mg/4 Ml Vial) 40 mg IV BID17 ALEK Stop: 05/10/25 18:38 Last Admin: 04/13/25 08:47 Dose: 40 mg Documented By: Admin: 04/12/25 16:29 Dose: 40 mg Documented By: Admin: 04/12/25 08:31 Dose: 40 mg Documented By: Admin: 04/11/25 17:38 Dose: 40 mg Documented By: Admin: 04/11/25 08:50 Dose: 40 mg Documented By: Admin: 04/10/25 20:11 Dose: 40 mg Documented By: ANTHONY Magnesium Sulfate/Dextrose (Magnesium Sulfate / D5w) 1 gm in 100 mls @ 50 mls/hr IV Q2H ALEK Stop: 04/11/25 06:14 Last Infusion: 04/11/25 06:42 Dose: Infused Documented By: Admin: 04/11/25 04:16 Dose: 50 mls/hr Documented By: Infusion: 04/11/25 04:12 Dose: Infused Documented By: Admin: 04/11/25 02:12 Dose: 50 mls/hr Documented By: Infusion: 04/11/25 02:12 Dose: Infused Documented By: Admin: 04/11/25 00:47 Dose: 50 mls/hr Documented By: EXPEDITER Potassium Chloride (K Gavin / Wtr) 10 meq in 100 mls @ 100 mls/hr IV Q1H ALEK Stop: 04/11/25 04:14 Last Infusion: 04/11/25 04:21 Dose: Infused Documented By: Admin: 04/11/25 03:21 Dose: 100 mls/hr Documented By: Infusion: 04/11/25 03:21 Dose: Infused Documented By: Admin: 04/11/25 02:28 Dose: 100 mls/hr Documented By: Infusion: 04/11/25 02:28 Dose: Infused Documented By: Admin: 04/11/25 01:42 Dose: 100 mls/hr Documented By: Infusion: 04/11/25 01:42 Dose: Infused Documented By: Admin: 04/11/25 00:48 Dose: 100 mls/hr Documented By: ANTHONY Digoxin 125 mcg/ Syringe 10 mls @ 2 mls/min IV NOW ONE Stop: 04/11/25 00:49 Last Admin: 04/11/25 00:58 Dose: 2 mls/min Documented By: ANTHONY Digoxin 125 mcg/ Syringe 10 mls @ 2 mls/min IV NOW STA Stop: 04/11/25 06:33 Last Admin: 04/11/25 06:52 Dose: 2 mls/min Documented By: ANTHONY Magnesium Sulfate/Dextrose (Magnesium Sulfate / D5w) 1 gm in 100 mls @ 50 mls/hr IV Q2H [facility] Stop: 04/11/25 12:14 Last Infusion: 04/11/25 13:15 Dose: Infused Documented By: Admin: 04/11/25 11:13 Dose: 50 mls/hr Documented By: Infusion: 04/11/25 11:12 Dose: Infused Documented By: Admin: 04/11/25 09:12 Dose: 50 mls/hr Documented By: AM Digoxin 125 mcg/ Syringe 10 mls @ 2 mls/min IV 1045 ONE Stop: 04/11/25 10:49 Last Admin: 04/11/25 11:42 Dose: Not Given Documented By: AM Digoxin 125 mcg/ Syringe 10 mls @ 2 mls/min IV NOW STA Stop: 04/11/25 15:11 Last Admin: 04/11/25 15:54 Dose: 2 mls/min Documented By: AM Magnesium Sulfate/Dextrose (Magnesium Sulfate / D5w) 1 gm in 100 mls @ 50 mls/hr IV ONE ONE Stop: 04/12/25 09:58 Last Infusion: 04/12/25 10:31 Dose: Infused Documented By: Admin: 04/12/25 08:31 Dose: 50 mls/hr Documented By: AK Ioversol (Optiray 320 125ml) 118 ml IV ONCE ONE Stop: 04/10/25 12:45 Last Admin: 04/10/25 12:44 Dose: 118 ml Documented By: HERON Losartan Potassium (Losartan Potassium 50 Mg Tab) [facility]: 05/11/25 08:59 Last Admin: 04/11/25 08:51 Dose: 100 mg Documented By: AM Magnesium Oxide (Magnesium Oxide 400 Mg Tab) 400 mg PO QA ALEK Stop: 05/11/25 08:59 Last Admin: 04/13/25 08:46 Dose: 400 mg Documented By: Admin: 04/12/25 08:37 Dose: 400 mg Documented By: Admin: 04/11/25 09:57 Dose: 400 mg Documented By: AM Metoprolol Succinate (Metoprolol Succ 50mg Ext Rel Tab) 100 mg PO BID ALEK Stop: 05/11/25 20:59 Last Admin: 04/13/25 08:46 Dose: 100 mg Documented By: Admin: 04/12/25 20:23 Dose: 100 mg Documented By: alt Admin: 04/12/25 08:37 Dose: 100 mg Documented By: Admin: 04/11/25 20:13 Dose: 100 mg Documented By: KRIS Metoprolol Tartrate (Metoprolol Tartrate 1 Mg/Ml Vial) 5 mg IV NOW STA Stop: 04/10/25 15:53 Last Admin: 04/10/25 16:14 Dose: 5 mg Documented By: alexander Metoprolol Tartrate (Metoprolol Tartrate 1 Mg/Ml Vial) 5 mg IV NOW STA Stop: 04/10/25 19:37 Last Admin: 04/10/25 20:11 Dose: 5 mg Documented By: ANTHONY Metoprolol Tartrate (Metoprolol Tartrate 1 Mg/Ml Vial) 5 mg IV NOW STA Stop: 04/10/25 21:19 Last Admin: 04/10/25 21:34 Dose: 5 mg Documented By: ANTHONY Pantoprazole Sodium (Pantoprazole 40 Mg Tab) 40 mg PO BID ALEK Stop: 05/10/25 20:59 Last Admin: 04/13/25 08:46 Dose: 40 mg Documented By: Admin: 04/12/25 20:23 Dose: 40 mg Documented By: capo Admin: 04/12/25 08:37 Dose: 40 mg Documented By: Admin: 04/11/25 20:14 Dose: 40 mg Documented By: Admin: 04/11/25 08:52 Dose: 40 mg Documented By: Admin: 04/10/25 20:13 Dose: 40 mg Documented By: ANTHONY Polyethylene Glycol (Polyethylene (Miralax) 17 Gm Pack) 17 gm PO DAILY ALEK Stop: 05/11/25 08:59 Last Admin: 04/13/25 09:34 Dose: 17 gm Documented By: Admin: 04/12/25 20:47 Dose: 17 gm Documented By: capo Admin: 04/12/25 08:38 Dose: Not Given Documented By: Admin: 04/11/25 08:59 Dose: Not Given Documented By: AM Potassium Chloride (Potassium Chloride Crtab 20 Meq Tabcr) 40 meq PO NOW STA Stop: 04/10/25 13:49 Last Admin: 04/10/25 15:09 Dose: 40 meq Documented By: alexander Potassium Chloride (Potassium Chloride Crtab 20 Meq Tabcr) 20 meq PO NOW ONE Stop: 04/10/25 17:01 Last Admin: 04/10/25 17:15 Dose: 20 meq Documented By: [id number] Potassium Chloride (Potassium Chloride Crtab 20 Meq Tabcr) 40 meq PO QAM ALEK Stop: 05/11/25 08:59 Last Admin: 04/13/25 09:34 Dose: 40 meq Documented By: Admin: 04/12/25 08:41 Dose: 40 meq Documented By: Admin: 04/11/25 08:58 Dose: 40 meq Documented By: AM Potassium Chloride (Potassium Chloride Crtab 20 Meq Tabcr) 40 meq PO ONE ONE Stop: 04/11/25 14:01 Last Admin: 04/11/25 15:07 Dose: 40 meq Documented By: AM Potassium Chloride (Potassium Chloride Crtab 20 Meq Tabcr) 20 meq PO NOW STA Stop: 04/12/25 08:00 Last Admin: 04/12/25 08:34 Dose: 20 meq Documented By: AK Sacubitril/Valsartan (Valsartan/Sacubitril 51/49 Mg Tab) 1 tab PO BID ALEK Stop: 05/12/25 20:59 Last Admin: 04/13/25 08:45 Dose: 1 tab Documented By: Admin: 04/12/25 20:23 Dose: 1 tab Documented By: alt Spironolactone (Spironolactone 25 Mg Tab) 25 mg PO QAM ALEK Stop: 05/11/25 14:14 Last Admin: 04/13/25 08:45 Dose: 25 mg Documented By: Admin: 04/12/25 08:37 Dose: 25 mg Documented By: Admin: 04/11/25 15:10 Dose: 25 mg Documented By: AM Medical Decision Making Differential Diagnosis Congestive heart failure, fluid overload, pneumonia, pleural effusion, pulmonary edema, among others Medical Records Attestation: I reviewed the patient's medical records. Home Medications was personally reviewed by me Laboratory Data Attestation: I reviewed the patient's lab results. 04/11/25 05:22 04/13/25 05:34 Lab Results 04/10/25 04/10/25 04/10/25 Range/Units 10:30 10:36 12:27 WBC 9.67 (4.8-10.8) K/ul RBC 4.74 (4.70-6.10) M/uL Hgb 14.8 (14.0-18.0) g/dL Hct 44.4 (42.0-52.0) % MCV 93.7 (80.0-100.0) fL MCH 31.2 (25.0-34.0) pg MCHC 33.3 (32.0-36.0) g/dL RDW Std Deviation 49.6 H (36.4-46.3) fL RDW Coeff of Tish 14.3 (11.5-14.5) % Plt Count 172 (130-400) K/uL MPV 12.2 (9.4-12.4) fL Immature Gran % (Auto) 0.5 % Neut % (Auto) 72.7 % Lymph % (Auto) 16.0 % [place] % (Auto) 9.7 % Eos % (Auto) 0.5 % Baso % (Auto) 0.6 % Neut # (Auto) 7.02 H (1.40-6.50) K/uL Lymph # (Auto) 1.55 (1.20-3.40) K/uL [place] # (Auto) 0.94 H (0.11-0.59) K/uL Eos # (Auto) 0.05 (0.00-0.50) K/uL Baso # (Auto) 0.06 (0.00-0.20) K/uL Immature Gran # (Auto) 0.05 (0.01-0.20) K/uL Sodium 142 (136-145) mmol/L Potassium 3.3 L (3.5-5.1) mmol/L Chloride 105 (98-107) mmol/L Carbon Dioxide 28 (21-32) mmol/L Anion Gap 9 (3-11) BUN 8 (6-23) mg/dl Creatinine 0.87 (0.6-1.4) mg/dl Est Cr Clr Drug Dosing 92.7 ml/min eGFR 93.40 BUN/Creatinine Ratio 9.2 L (10-20) Glucose 115 H (70-99(Fasting)) mg/dl Calcium 6.9 L (8.6-10.3) mg/dl Total Bilirubin 1.1 H (0.2-1.0) mg/dl AST 20 (13-39) U/L ALT 19 (7-52) U/L Alkaline Phosphatase 72 (34-104) U/L Troponin I High Sens 12.7 (0-20) pg/ml B-Natriuretic Peptide 1616 H (0-100) pg/ml Total Protein 5.7 L (6.0-8.3) gm/dl Albumin 3.4 (3.4-5.0) gm/dl Globulin 2.3 L (2.5-4.0) gm/dl Albumin/Globulin Ratio 1.5 (0.9-2) Urine Color Yellow Urine Appearance Clear (Clear) Urine pH 6.5 (4.5-7.5) Ur Specific [place] 1.005 (1.000-1.030) Urine Protein 2+ H (Negative) Urine Glucose (UA) Negative (Negative) Urine Ketones Negative (Negative) Urine Blood Negative (Negative) Urine Nitrite Negative (Negative) Urine Bilirubin Negative (Negative) Urine Urobilinogen Negative (Negative) Ur Leukocyte Esterase Negative (Negative) Urine WBC (Auto) 0-5 (0-5) /hpf Urine RBC (Auto) 0-2 (0-2) /hpf U Hyaline Cast (Auto) 0-2 (0-2) /lpf U Epithel Cells (Auto) 0-2 (0-2) /hpf Urine Bacteria (Auto) None Seen (None Seen) Urine Comment Adenovirus (PCR) Not Detected (NotDetected) B. pertussis DNA (PCR) Not Detected (NotDetected) B.parapertussis DNA PCR Not Detected (NotDetected) C. pneumoniae DNA (PCR) Not Detected (NotDetected) Coronavirus OC43 (PCR) Not Detected (NotDetected) Coronavirus HKU1 (PCR) Not Detected (NotDetected) Coronavirus 229E (PCR) Not Detected (NotDetected) SARS-CoV-2 (PCR) Not Detected (NotDetected) Coronavirus NL63 (PCR) Not Detected (NotDetected) Human Metapneumovir PCR Not Detected (NotDetected) Influenza Type A (PCR) Not Detected (NotDetected) Influenza Type B (PCR) Not Detected (NotDetected) M. pneumoniae (PCR) Not Detected (NotDetected) Parainfluenza 1 (PCR) Not Detected (NotDetected) Parainfluenza 2 (PCR) Not Detected (NotDetected) Parainfluenza 3 (PCR) Not Detected (NotDetected) Parainfluenza 4 (PCR) Not Detected (NotDetected) RSV (PCR) Not Detected (NotDetected) Entero/Rhino (PCR) Not Detected (NotDetected) MDM Narrative Patient is a 70-year-old male who presents to the emergency department with complaints of shortness of breath, difficulty breathing and stomach bloating. Patient reports that he has been having stomach cramping and diarrhea intermittently for 2 weeks and today he felt very short of breath and was unable to get across the parking lot without a wheelchair due to his shortness of breath. Patient denies any chest pain. Patient was evaluated by myself and findings were noted in the physical exam above. Patient was ordered IV placement, lab work, chest x-ray, [employer] upper respiratory panel, urinalysis, and EKG. patient's lab work resulted with mild white blood cell count of 9.67. Patient had no indication of anemia with a hemoglobin of 14.8 and hematocrit of 44.4. Patient had no significant electrolyte imbalance noted. Patient did have a troponin level that was checked and within normal range at 12.7. Patient does have a BNP level that was checked and resulted significantly high at 1616. Patient's urinalysis resulted and was positive for protein but negative for any indication of infection. Patient had a [employer] panel that was completed and negative for any findings. Patient also had a chest x-ray that was completed and interpreted by radiology to note cardiomegaly with evidence of congestive failure and pulmonary edema. There is also layering pleural effusions with dependent consolidation. Patient had a CT of the abdomen pelvis that was completed and interpreted by radiology as well to note fluid overload with pleural effusions, anasarca and trace ascites. Patient had no evidence of bowel obstruction or pneumoperitoneum. I did order the patient a chest CT to further evaluate his respiratory issues. The patient's CT was completed and interpreted by radiology to show no evidence of a PE however did note cardiomegaly and emphysema with evidence of congestive failure. The patient has a right larger than left pleural effusion with dependent consolidation. I discussed all these findings with the patient and patient verbalized understanding. I discussed with the patient that he should stay in the hospital here with us for admission for his fluid overload so that we can get him some Lasix and monitor his condition to make sure his symptoms are improving. Patient verbalized understanding and is agreeable to the plan for admission to the hospital. I spoke with the [facility] hospitalist group and given a full report of the patient's chief complaint, current status and the results of his imaging and lab work. I also ordered the patient a dose of IV Lasix at this time. Adjustment hospitalist verbalized understanding and is agreeable to admit the patient under their service for further evaluation and management. Please refer the [facility] hospitalist group's documentation for further evaluation and management of this patient. Impression Acute CHF, Bloating, SOB (shortness of breath) Discharge Plan Visit Data Chief Complaint: Shortness of Breath/Dyspnea Stated Complaint: STOMACH CRAMPS, BLOATING, TROUBLE BREATHING ED Provider: Sharona Lowery ED Midlevel Provider: Yun Yao Discharge Problem: Acute CHF, Bloating, SOB (shortness of breath) Patient Disposition: Admitted As Inpatient Condition: Fair Discharge Instructions Interventions: ED Discharge Assessment Last Done: 04/10/25 17:56 ED DC CONDITION Conditon at Discharge Condition at Discharge: Fair Discharge Problem: Acute CHF Qualifiers: Heart failure type: unspecified Qualified Code(s): I50.9 - Heart failure, unspecified
[2025-04-10 11:30] LABS: Alanine Aminotransferase 19.0 U/L (7-52); Albumin Globulin Ratio 1.5 (0.9-2); Albumin Level 3.4 gm/dl (3.4-5.0); Alkaline Phosphatase 72.0 U/L (34-104); Anion Gap 9.0 (3-11); Bilirubin,Total 1.1 mg/dl (0.2-1.0); Blood Urea Nitrogen 8.0 mg/dl (6-23); Calcium 6.9 mg/dl (8.6-10.3); Carbon Dioxide 28.0 mmol/L (21-32); Chloride 105.0 mmol/L (98-107); Creatinine Clr Calc Pharmacy 92.7 ml/min; Globulin 2.3 gm/dl (2.5-4.0); Glucose 115.0 mg/dl (70-99(Fasting)); Potassium 3.3 mmol/L (3.5-5.1); Sodium 142.0 mmol/L (136-145); Total Protein 5.7 gm/dl (6.0-8.3)
--- NOTE | 2025-04-10 11:32 | XRay Report ---
SINGLE VIEW CHEST CLINICAL HISTORY: Dyspnea FINDINGS: An AP, portable, upright chest radiograph is compared to study dated 12/21/2024. The heart i s enlarged. There is pulmonary vascular congestion with interstitial edema. There are layering pleura l effusions with lower lobe consolidation. No pneumothorax is seen. The skeletal structures are osteo penic. The bony thorax is grossly intact. IMPRESSION: 1. Cardiomegaly with evidence of congestive failure and pulmonary edema. 2. Layering pleural effusions with dependent consolidation. 3. Radiographic follow-up to resolution is recommended. ACT 112: Negative or not required by law. Electronically signed by: William Yusuf M.D. 04/10/2025 11:31 AM
[2025-04-10 11:59] LABS: Chlamydia pneumoniae PCR Not Detected (NotDetected); Coronavirus 229E PCR Not Detected (NotDetected); Coronavirus CoV-2 (COVID19)PCR Not Detected (NotDetected); Coronavirus HKU1 PCR Not Detected (NotDetected); Coronavirus NL63 PCR Not Detected (NotDetected); Coronavirus OC43PCR Not Detected (NotDetected); Human Metapneumovirus PCR Not Detected (NotDetected); Parainfluenza Virus 1 PCR Not Detected (NotDetected); Parainfluenza Virus 2 PCR Not Detected (NotDetected); Parainfluenza Virus 3 PCR Not Detected (NotDetected); Parainfluenza Virus 4 PCR Not Detected (NotDetected); Respiratory Syncytial VirusPCR Not Detected (NotDetected); Rhinovirus/Enterovirus PCR Not Detected (NotDetected)
[2025-04-10] MEDS: OPTIRAY 320 125ml IV ONE (12:44)
[2025-04-10 12:46] LABS: Appearance Urine Clear (Clear); Bacteria Urine Automated None Seen (None Seen); Cast Urine Automated 0-2 /lpf (0-2); Epithelial Cell Urine Auto 0-2 /hpf (0-2); Glucose Urine UA Negative (Negative); RBC Urine Automated 0-2 /hpf (0-2); WBC Urine Automated 0-5 /hpf (0-5)
--- NOTE | 2025-04-10 13:21 | CT Scan Report ---
ABDOMEN AND PELVIS CT WITH IV CONTRAST CT DOSE: 3099.5 mGy.cm HISTORY: Generalized abdominal pain with constipation constipation, abdominal bloating and discomfor t TECHNIQUE: Multiaxial CT images of the abdomen and pelvis were performed following the IV administrat ion of 118 cc of Optiray, A dose lowering technique was utilized adhering to the principles of ALARA . COMPARISON STUDY: CT chest same day FINDINGS: Moderate cardiomegaly. Small left and moderate sized pleural effusions. Intralobular septal thickening with dependent bibasilar consolidation. Chest CT dictated separately. No pneumatosis or p neumoperitoneum. Unremarkable spleen, pancreas, bilateral and adrenal glands. Unremarkable liver. Sub centimeter hypodensity left hepatic lobe on image 25 series 5, likely benign. Unremarkable kidneys without hydronephrosis. 3 cm cyst of the superior pole right kidney. Urinary octavia dder wall thickening with partial distention. Prostamegaly. Small fat and fluid filled right inguinal hernia. Atherosclerosis of aorta without aneurysm. No lymphadenopathy. Mild nonspecific rectal wall thickening. Normal appendix. No bowel obstruction. Scattered small bowel air-fluid levels are likely physiologic. Trace abdominal pelvic ascites with body wall edema. Degenerative changes of the spine, pelvis and hips. Endplate irregularity at several levels is likely degenerative. No paravertebral cielo ma. IMPRESSION: 1. Fluid overload with pleural effusions, anasarca and trace ascites. 2. Nonspecific wall thickening of the rectum may be secondary to partial distention versus a nonspeci fic proctitis. Findings could be correlated with colonoscopy. 3. No bowel obstruction or pneumoperitoneum. 4. Prostatomegaly with evidence of chronic outlet obstruction. 5. Small fat and fluid filled right inguinal hernia. ACT 112: Negative or not required by law. The above report was generated using voice recognition software. It may contain grammatical, syntax o r spelling errors. Electronically signed by: Mumtaz Greene M.D. 04/10/2025 1:20 PM
--- NOTE | 2025-04-10 13:21 | CT Scan Report ---
CT ANGIOGRAM OF THE CHEST CLINICAL HISTORY: Dyspnea COMPARISON STUDY: Chest x-ray dated 04/10/2025 TECHNIQUE: Following the IV administration of 118 cc of Optiray 320, CT angiogram of the chest was pe rformed from the upper abdomen to the thoracic inlet utilizing the pulmonary embolus protocol. Images are reviewed in the axial, sagittal, and coronal planes. 3-D MIPS images are created and assessed. I V contrast was administered without complication. A dose lowering technique was utilized adhering to the principles of ALARA. The examination is degraded by motion artifact, as well as by streak artifa ct from the arms which could not be elevated above the chest. FINDINGS: Thyroid: Imaged portions of the thyroid gland are normal in size and attenuation. Thoracic aorta: The thoracic aorta is normal in caliber and demonstrates standard 3-vessel arch anato my. The thoracic aorta is not opacified. Pulmonary vasculature: The pulmonary trunk is normal in caliber. There are no filling defects identif ied in main, lobar, or segmental pulmonary branches to suggest pulmonary embolus. Evaluation of the p eripheral branches is degraded by suboptimal contrast opacification. Heart: The heart is enlarged and without pericardial effusion. There is coronary artery atheroscleros is. Lungs and pleural spaces: There is mild emphysematous change. There is diffuse intralobular septal th ickening. There are moderate right and small left pleural effusions with dependent consolidation. Loc ulated fluid is seen along the left major fissure. Mediastinum: There is no mediastinal lymphadenopathy. Naomy: Clear. Axillae: There is no axillary lymphadenopathy. Upper abdomen: Partially visualized upper abdominal viscera is within normal limits. Skeletal structures: The skeletal structures are osteopenic. Degenerative change is noted in the shou lders and spine. No lytic or blastic bony lesions are seen. IMPRESSION: 1. There is no evidence of pulmonary embolus in the main, lobar, or segmental pulmonary arteries. 2. Cardiomegaly and emphysema with evidence of congestive failure. 5. Right larger than left pleural effusions with dependent consolidation. Radiographic follow-up to [facility] is recommended. 4. Coronary artery atherosclerosis. 5. Additional findings as above. ACT 112: Negative or not required by law. Electronically signed by: William Yusuf M.D. 04/10/2025 1:19 PM
--- NOTE | 2025-04-10 13:39 | Emergency Department Note ---
ED Visit Note I was consulted by the Advanced Practice Provider, RADHA Hess. I performed a substantive portion of the visit. This includes aspects of: History: Patient is a 70-year-old male presenting with shortness of breath. Patient reports increasing shortness of breath for the last 2 weeks. He states shortness of breath is worse with exertion. He also states that he has been constipated and having abdominal cramping. MDM: Workup in the emergency department showed an elevated BNP. Viral respiratory swab negative. Chest x-ray imaging reviewed by myself showed concern for some pulmonary vascular congestion, per my interpretation. Radiology notes evidence of congestive failure and pulmonary edema. CT PE negative for PE. Noted to have large pleural effusions and evidence of congestive failure. CT abdomen/pelvis shows fluid overload with pleural effusions and anasarca. Patient given 40 mg of IV Lasix. Will be admitted to hospitalist service for further evaluation and management. .
[2025-04-10] MEDS: FUROSEMIDE 40 MG/4 ML VIAL IV ONE (13:47)
[2025-04-10] MEDS ORDERED: ONDANSETRON INJ 2 MG/ML 2 ML VIAL IV PRN (14:10)
[2025-04-10] MEDS ORDERED: ACETAMINOPHEN 325 MG TAB PO PRN (14:10)
--- NOTE | 2025-04-10 14:16 | History & Physical Report ---
Date of Service April 10, 2025 Assessment & Plan (1) Acute CHF: (2) A-fib: (3) Hypertension: (4) Hyperlipidemia: (5) Constipation: Plan This is a 70 year old gentleman with past medical history of A fib, HTN, HLD, GERD who presented to the ED on 04/10/2025 for SOB. While in the ED, his workup was consistent with an acute exacerbation of CHF. His CXR was consistent with layering pleural effusions w/ dependent consolidation. Chest CTA was negative for PE but consistent w/ R > L pleural effusions w/ dependent consolidation. CTAP w/ nonspecific wall thickening of rectum & fluid overload w/ pleural effusions, anasarca & trace ascites. His CBC was unremarkable. BMP w/ low K of 3.3 but renal function stable. TB elevated at 1.1 with the remainder of LFTs WNL. BNP elevated at 1616 w/ no prior hx of comparison. Troponin negative at 12.7. He was given IV Lasix in the ED & po tassium replacement. #Acute CHF | A fib | HTN w/ 2 weeks of SOB and worsening a few days prior to arrival. Diagnosed w/ A fib in January 2025 where EF was 55-60% at that time on echo. Is not compliant with medications at home. CXR w/ layering pleural effusions; Chest CTA w/ similar presentation & negative for PE Trop negative. BNP elevated at 1616 w/ no previous to compare to. Tachycardic in ED w/ rates up to 150s. s/p 1x 5mg IV Lopressor, continue to monitor. s/p Lasix 40mg IV --> continue Lasix 40mg IV BID17 dosing on admission. Monitor I&O's, standing daily weights. Updated echo ordered. Continue Carvedilol, Losartan. (pt does not take Eliquis secondary to cost) Has follow up w/ cardiology in two weeks outpatient. Encouraged to keep. #Abdominal pain | Constipation suspect underlying abdominal pain is related to constipation. CTAP w/ nonspecific wall thickening of rectum Start Miralax 17gm once daily outpatient GI referral for a colonoscopy. #Hypokalemia K low at 3.3 on arrival, s/p 60meq Repeat BMP this evening to reassess K levels after aggressive diuresis. Continue to replete as necessary AM BMP & Mag #HLD - statin #GERD - PPI DVT prophylaxis: Lovenox Code: DNR/DNI Case was discussed with Dr. Sanchez at time of admission History of Present Illness Primary Care Provider: Aaron Miller, ALVIN, RADHA This is a 70 year old gentleman with past medical history of A fib, HTN, HLD, GERD who presented to the ED on 04/10/2025 for SOB. Melvin was seen & examined this afternoon. He reports that he has had progressive SOB w/ activity for the last ~ 2 weeks. He reports the past few days it has worsened and this morning he was unable to walk into the hospital secondary to his SOB. He denies any associated cough, chest pain, fevers, or chills. Reports this has never happened to him in the past. He states that he is not compliant with his medications at home. States he takes his AM meds daily but often misses his night time medications. Believes he has been tried on metoprolol succinate in the past & it caused him an upset stomach. Denies any palpitations. 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 Reports abdominal pain & constipation. states he did have a BM this morning but has been struggling to move his bowels. States he used milk of mag & molasses at home one time with relief. Denies any vomiting but reports occasional nausea. Denies any lower extremity edema. While in the ED, his workup was consistent with an acute exacerbation of CHF. His CXR was consistent with layering pleural effusions w/ dependent consolidation. Chest CTA was negative for PE but consistent w/ R > L pleural effusions w/ dependent consolidation. CTAP w/ nonspecific wall thickening of rectum & fluid overload w/ pleural effusions, anasarca & trace ascites. His CBC was unremarkable. BMP w/ low K of 3.3 but renal function stable. TB elevated at 1.1 with the remainder of LFTs WNL. BNP elevated at 1616 w/ no prior hx of comparison. Troponin negative at 12.7. He was given IV Lasix in the ED & potassium replacement. Code discussion did take place with the patient & he does confirm that he is a DNR/DNI Allergies Allergy/AdvReac Type Severity Reaction Status Date / Time pollen extracts Allergy Mild Congested Verified 03/11/25 13:01 Home Medications Medication Instructions Recorded Confirmed Type acetaminophen 650 mg 650 mg PO UD PRN Pain 01/22/21 04/10/25 History tablet,extended release (Tylenol Arthritis Pain) fluocinonide 0.05 % topical cream 1 applic topical UD PRN EXZEMA 01/22/21 04/10/25 History loratadine 10 mg capsule 10 mg PO DAILY PRN SEASONAL 01/22/21 04/10/25 History ALLERGIES atorvastatin 10 mg tablet 10 mg PO QAM #90 tabs 07/23/24 04/10/25 Rx carvedilol 25 mg tablet 25 mg PO BID 01/18/25 04/10/25 History losartan 100 mg tablet 100 mg PO QAM 01/18/25 04/10/25 History pantoprazole 40 mg tablet,delayed 40 mg PO BID 01/18/25 04/10/25 History release Past Med/Surg History Problem List (Updated 04/10/25 @ 16:16 by Cesilia Verdugo PA-C) Constipation Acute CHF 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 Gingival swelling Ear pain, referred Radiolucent area in mandible Impacted third molar tooth LVH (left ventricular hypertrophy) Non-occlusive coronary artery disease Nonischemic cardiomyopathy Hyperlipidemia Hypertension Bloating Chronic diarrhea Esophageal dysphagia Gastroesophageal reflux disease Impaired glucose metabolism (Chronic) Paresthesia of both feet (Chronic) Hyperglycemia (Chronic) Medical History (Updated 04/10/25 @ 16:16 by Cesilia Verdugo PA-C) A-fib pt reports he was sent the [facility] Emergency Room after having his preop ekg and was told him he had a a.fib/abnormal ekg - he thinks it was because he had "lots of coffee" that morning - pt states he was to start on xarelto and pt refused xarelto due to cost, states he was switched to metoprolol but did not like the way it made him feel so he went back to his orginal script of carvedilol from his pcp. pt denies any chest pain/palpitations/sob at this time. CAD (coronary artery disease) LVH (left ventricular hypertrophy) Hypertension History of dysphagia Expected difficult intubation severely limited cervical extension s/p cervical spine surgery, small oral opening and Mallampati 3. History of colon polyps Hyperlipidemia History of anesthesia reaction very combative after cervical fusion Ileitis hx - resolved. Acid reflux controlled, stable per pt Inguinal hernia stable per pt Lumbosacral radiculopathy at S1 Essential hypertension controlled, stable per pt Cardiomyopathy, nonischemic EF < 40% per remote records BMI 31.0-31.9,adult Surgical History H/O oral surgery (01/29/25) S/P knee replacement History of esophagogastroduodenoscopy (EGD) Hx of colonoscopy History of cardiac cath History of total knee replacement History of fusion of cervical spine History of cataract surgery Family History Father Throat cancer Alcohol abuse Cardiac disorder Hypertension Myocardial infarction Sister Alcohol abuse Other Family history of diabetes mellitus Denies family history of Ovarian cancer Prostate cancer Breast cancer Colorectal cancer Social History (Updated 02/19/25 @ 09:59 by Julissa Jauregui LPN) Smoking Status: Current every day smoker Tobacco Type: Cigars Age Started Using Tobacco: 16; Cigarettes Per Day: 5-6 cigars per week; Second Hand Exposure: Yes (IN THE PAST); Do You Dip or Chew Tobacco: No (HX OF , NOT CURRENT); Hx Alcohol Use: Yes Alcohol type: beer Alcohol Intake Frequency: 4 or More x per/Week Alcohol Intake Frequency Comment: 5 PER DAY/30 PER WEEK Hx Substance Use: No Preferred Language: Bur[place]ian Communication Ability: Effective Visual Impairment: No Limitations Hearing Ability: Hard of Hearing Gear Finisher Required: No Beliefs That Will Affect Care: None marital status: Current Living Situation: Alone current occupational status: employed current occupation: SELF EMPLOYED, contractor How many Children do You have: 2 Other Information That Helps Us Care for You: No Feels Safe at Home: Yes Safety Concerns: Feels Safe At This Time Childhood Exposure to Second-Hand Smoke: Yes Diet: regular caffeine: Yes during the past year weight has: decreased > 10 lbs Dental Care, Regularly: Yes Physical Activity Frequency: 5-6 Times per Week Seatbelt Use: never Sunscreen Use: No Assistive Devices: None Physical Exam Physical Exam: General: NAD, VS: BP 121/102; P155; R18; T36C Resp: normal respiratory effort, lungs diminished bilaterally, scattered rhonchi. CV: tachycardic, irregular rhythm, no murmur Abd: hypoactive bowel sounds, lower abdominal tenderness to palpation. Extremities: Moves all extremities, mild LE edema. Neuro: A&O x3 Skin: intact, no lesions noted Results & Data Results & Data Vital Signs (Past 12 Hours) Vital Signs Temp Pulse Pulse Resp BP BP Pulse Ox 04/10/25 12:00 101 H 18 126/97 94 04/10/25 10:57 95 04/10/25 10:55 114 H 04/10/25 10:37 96 04/10/25 10:15 36.0 C L 105 H 20 109/68 97 O2 Del Method 04/10/25 12:00 Room Air 04/10/25 10:57 Room Air 04/10/25 10:55 04/10/25 10:37 Room Air 04/10/25 10:15 Room Air Code Status & VTE Plan VTE Prophylaxis Plan VTE Prophylaxis will be ordered: Yes Supervising Physician Co-Signing Physician Notes The patient was seen by me. The chart was reviewed. Case discussed with GABRIEL Marie. Agree with assessment and plan PG Care Time/CCT Total # of Minutes Spent Total Time Spent with Patient: Total time spent is greater than 50% in coordination of care (as documented) at patient's floor/unit and/or counseling patient: Coding Level of Care Code 85993 INT INP/OBS CARE 3/75MIN Diagnoses Acute CHF I50.9 A-fib I48.91 Primary hypertension I10 Hypertension type: primary hypertension Mixed hyperlipidemia E78.2 Hyperlipidemia type: mixed hyperlipidemia Constipation K59.00 (3) Hypertension Hypertension type: primary hypertension Qualified Code(s): I10 - Essential (primary) hypertension (4) Hyperlipidemia Hyperlipidemia type: mixed hyperlipidemia Qualified Code(s): E78.2 - Mixed hyperlipidemia
[2025-04-10] MEDS: POTASSIUM CHLORIDE CRTAB 20 MEQ TABCR PO STA (15:09)
[2025-04-10] MEDS: METOPROLOL TARTRATE 1 MG/ML VIAL IV STA ×3 (16:14→21:34)
[2025-04-10] MEDS: POTASSIUM CHLORIDE CRTAB 20 MEQ TABCR PO ONE (17:15)
--- NOTE | 2025-04-10 18:04 | XCELERA ---
[id number]
[2025-04-10] MEDS: FUROSEMIDE 40 MG/4 ML VIAL IV SCH (20:11)
[2025-04-10] MEDS: ENOXAPARIN INJ 40 MG/0.4 ML SYR SQ SCH (20:12)
[2025-04-10] MEDS: CHLORHEXIDINE GLUCONATE 0.12% 480 ML MT SCH (20:12)
[2025-04-10 21:08] LABS: Anion Gap 13.0 (3-11); Blood Urea Nitrogen 9.0 mg/dl (6-23); Calcium 7.2 mg/dl (8.6-10.3); Carbon Dioxide 28.0 mmol/L (21-32); Chloride 104.0 mmol/L (98-107); Creatinine Clr Calc Pharmacy 85.5 ml/min; Glucose 114.0 mg/dl (70-99(Fasting)); Potassium 3.2 mmol/L (3.5-5.1); Sodium 145.0 mmol/L (136-145)
[2025-04-11] MEDS: MAGNESIUM SULFATE / D5W 1 GM/100 ML BAG IV SCH ×2 (00:47→09:12)
[2025-04-11] MEDS: POTASSIUM CHLORIDE / WTR 10 MEQ/100 ML PLCT IV SCH (00:48)
[2025-04-11] MEDS: DIGOXIN 125 MCG in SYRINGE 9.5 ML IV ONE ×2 (00:58→11:42)
[2025-04-11 06:29] LABS: Hematocrit (blood only) 38.8 % (42.0-52.0); Hemoglobin 13.0 g/dL (14.0-18.0); Mean Corpuscular Hemoglobin 31.0 pg (25.0-34.0); Mean Corpuscular Volume 92.4 fL (80.0-100.0); Platelet Count 139 K/uL (130-400); RDW Standard Deviation 47.9 fL (36.4-46.3); Red Blood Count 4.20 M/uL (4.70-6.10); White Blood Count 7.82 K/ul (4.8-10.8)
[2025-04-11 06:51] LABS: Anion Gap 11.0 (3-11); Blood Urea Nitrogen 12.0 mg/dl (6-23); Calcium 6.6 mg/dl (8.6-10.3); Carbon Dioxide 31.0 mmol/L (21-32); Chloride 102.0 mmol/L (98-107); Creatinine Clr Calc Pharmacy 73.9 ml/min; Glucose 95.0 mg/dl (70-99(Fasting)); Magnesium 1.3 mg/dl (1.7-2.4); Potassium 3.3 mmol/L (3.5-5.1); Sodium 144.0 mmol/L (136-145)
[2025-04-11] MEDS: DIGOXIN 125 MCG in SYRINGE 9.5 ML IV STA ×2 (06:52→15:54)
[2025-04-11 07:05] LABS: Thyroid Stimulating Hormone 2.837 uIu/ml (0.300-4.500)
[2025-04-11] MEDS: LOSARTAN POTASSIUM 50 MG TAB PO SCH (08:51)
[2025-04-11] MEDS: ATORVASTATIN 10 MG TAB PO SCH (08:53)
[2025-04-11] MEDS: POTASSIUM CHLORIDE CRTAB 20 MEQ TABCR PO SCH (08:58)
[2025-04-11] MEDS: POLYETHYLENE (MIRALAX) 17 GM PACK PO SCH (08:59)
[2025-04-11] MEDS: MAGNESIUM OXIDE 400 MG TAB PO SCH (09:57)
--- NOTE | 2025-04-11 10:48 | Electrocardiogram Report ---
Test Reason : Blood Pressure : */* mmHG Vent. Rate : 115 BPM Atrial Rate : * BPM P-R Int : * ms QRS Dur : 98 ms QT Int : 376 ms P-R-T Axes : * 34 -20 degrees QTcB Int : 520 ms Atrial fibrillation with rapid ventricular response with premature ventricular or aberrantly conducte d complexes Nonspecific ST and T wave abnormality Abnormal ECG When compared with ECG of 10-Apr-2025 10:25, (unconfirmed) No significant change Confirmed by Dario Sifuentes ([id number]) on 04/11/2025 10:48:04 AM Referred By: REFERRED SELF Confirmed By: Dario Sifuentes
--- NOTE | 2025-04-11 11:21 | Hospitalist Progress Note ---
"Date of Service April 11, 2025 Assessment & Plan (1) Acute CHF: (2) A-fib: (3) Hypertension: (4) Hyperlipidemia: (5) Constipation: Plan This is a 70 year old gentleman with past medical history of A fib, HTN, HLD, GERD who presented to the ED on 04/10/2025 for SOB. #Acute CHF | A fib | HTN w/ 2 weeks of SOB and worsening a few days prior to arrival. Diagnosed w/ A fib in January 2025 where EF was 55-60% at that time on echo. Is not compliant with medications at home. CXR w/ layering pleural effusions; Chest CTA w/ similar presentation & negative for PE Trop negative. BNP elevated at 1616 w/ improvement to 1383. Tachycardic in ED & overnight w/ rates up to 170s. s/p 1x 5mg IV Lopressor x3 and IV Digoxin x 2. Remains tachycardic 04/11 AM w/ rates hitting 170s w/ ambulation. Pt is asymptomatic. s/p Lasix 40mg IV --> continue Lasix 40mg IV BID17 dosing on admission. Monitor I&O's, standing daily weights. Echo updated: EF 20-25%. Severe global hypokinesis; severe LA & RA enlargement. mild-mod mitral regurg; mild tricuspid regurg, dilated IVC w/ reduced collapsibility. Given echo findings & inability to adequately control HR cardiology consulted --> Switch from Carvedilol/Digoxin to Metoprolol succinate 100mg BID. plan for cardioversion after a month of anticoagulation; started on Eliquis. Switch from Losartan to Entresto, add Jardiance & Spironolactone. Can continue to diurese. Cardiology will supply samples/coupons to help w/ medication compliance in outpatient setting. #Abdominal pain | Constipation suspect underlying abdominal pain is related to constipation. CTAP w/ nonspecific wall thickening of rectum Start Miralax 17gm once daily, encourage compliance. outpatient GI referral for a colonoscopy. #Hypokalemia | Hypomagnesemia. K low at 3.3 on arrival, s/p 60meq K low at 3.3 & Mag low at 1.3 despite repletion overnight. Additional PO K repletion & IV mag ordered. Repeat BMP & Mag in AM. #HLD - statin #GERD - PPI DVT prophylaxis: Lovenox Code: DNR/DNI Discussed w/ cardiology on 04/11. Admission and Anticipated Discharge Date Admission Date: April 10, 2025 Supervising Physician Co-Signing Physician Notes The patient was not seen by me. The chart was reviewed. Case discussed with GABRIEL Marie. Agree with assessment and plan Subjective Melvin was seen & examined this morning. He reports he is feeling improved today in regards to his SOB. Does note some when walking back from the bathroom but not at rest. He denied any CP & he did note he feels much improved when compared to yesterday. He denies having a bowel movement. Physical Exam Physical Exam: General: NAD, VS: BP 110/81; P117; R20; T36.6C Resp: normal respiratory effort, lungs clear to auscultation, diminshed at bases CV: tachycardic, irregularly irregular, no murmur Abd: normal bowel sounds, non tender Extremities: Moves all extremities, no edema Neuro: A&O x3 Skin: intact, no lesions noted Results & Data Results & Data Vital Signs (Past 12 Hours) Vital Signs Temp Pulse Pulse Resp BP BP Pulse Ox 04/11/25 10:08 130 H 114/80 94 04/11/25 09:13 97 04/11/25 09:00 97 04/11/25 08:36 04/11/25 07:54 36.3 C L 83 20 132/88 96 04/11/25 07:33 103 H 04/11/25 06:52 101 H 04/11/25 03:07 36.3 C L 108 H 18 126/85 97 04/11/25 00:58 123 H O2 Del Method O2 Flow Rate 04/11/25 10:08 Room Air 04/11/25 09:13 Nasal Cannula 1 04/11/25 09:00 Nasal Cannula 2 04/11/25 08:36 Nasal Cannula 2 04/11/25 07:54 Nasal Cannula 3 04/11/25 07:33 04/11/25 06:52 04/11/25 03:07 Nasal Cannula 2.5 04/11/25 00:58 PG Care Time/CCT Total # of Minutes Spent Total Time Spent with Patient: Total time spent is greater than 50% in coordination of care (as documented) at patient's floor/unit and/or counseling patient: Coding Level of Care Code 79534 SUB INP/OBS CARE 50MIN Diagnoses Acute CHF I50.9 A-fib I48.91 Primary hypertension I10 Hypertension type: primary hypertension Mixed hyperlipidemia E78.2 Hyperlipidemia type: mixed hyperlipidemia Constipation K59.00 (3) Hypertension Hypertension type: primary hypertension Qualified Code(s): I10 - Essential (primary) hypertension (4) Hyperlipidemia Hyperlipidemia type: mixed hyperlipidemia Qualified Code(s): E78.2 - Mixed hyperlipidemia"
--- NOTE | 2025-04-11 12:57 | Cardiology Consultation ---
Date of Consultation April 11, 2025 Assessment & Plan (1) A-fib: (2) Nonischemic cardiomyopathy: (3) Systolic CHF, chronic: (4) Non-occlusive coronary artery disease: (5) Anticoagulant long-term use: Plan 1. Atrial fibrillation: He has probably been in atrial fibrillation for at least 4 months, I am not sure if it is paroxysmal or persistent, likely persistent. His heart rate may not be adequately controlled although heart rates after his diagnosis in November (based on pulse) have not been fast, here his heart rate is somewhat fast although not markedly so. We may have to adjust his AV merline blocking medications (currently he is on carvedilol and he received digoxin but is not on a daily dose). He is on anticoagulation with Xarelto which is appropriate. Unfortunately he was not on anticoagulation on presentation (he chose not to take it) therefore our options are limited. I would like to perform cardioversion to see whether we can get him back into sinus rhythm and see whether he maintains that, but we cannot do that safely without a month of anticoagulation unless we do WICHO which I would prefer not to do. My plan would be to wait a month after anticoagulation and convert the rhythm without antiarrhythmic therapy. I am going to switch carvedilol to metoprolol succinate which might give us better heart rate response, I will switch that this evening to 100 mg twice a day. 2. Cardiomyopathy: He has a longstanding cardiomyopathy, that appears to have worsened recently and is likely what prompted his presentation. As an outpatient he has been on carvedilol 25 mg twice a day and losartan 100 mg daily. We should optimize his heart failure regimen. It sounds as though he has not been on Entresto and he does not recognize Jardiance or Farxiga. I do not know that he can afford these but they would be good for him to be on. He would be a good candidate for spironolactone as well (low potassium). I am going to start him on spironolactone, Jardiance and switch losartan to Entresto. At least for the time being we can probably provide samples except for the generic medications which he can probably get. I am not sure what kind of evaluation he has had for reversible causes of cardiomyopathy but I suspect we should test for some of these at this point, even though the yield is probably low. 3. Congestive heart failure: This is probably a combination of his atrial fibrillation and his cardiomyopathy leading to fluid retention. His weight is not significantly elevated suggesting that he has loss body mass over the last several years and replaced it with fluid. He notes that he has lost weight and muscle mass this last year. We will have to establish a dry weight. I believe he requires continued diuresis although he is not grossly fluid overloaded currently. 4. Coronary artery disease: He has known coronary disease based on catheterization, that was many years ago but he has been maintained on low-dose atorvastatin. His high-sensitivity troponin on presentation this visit was normal so I do not suspect an ischemic event. The most recent cholesterol measurement that I see was in March 2024 and it was 139, his HDL at that time was 70. His non-HDL cholesterol was therefore 69, which is quite good. He co uld have had progression of his coronary artery disease but we do not have evidence for that. 5. Anticoagulation: I discussed anticoagulation with him at length, he had relatives on warfarin and does not want to take that, there were cost issues and so he did not take the Xarelto. He is getting a different kind of insurance in the new year and I believe he has Medicare part D so hopefully he can take these drugs next year, even though he may have to pay a lot in the initial part of the year until he meets his deductible. I am going to start him on Eliquis and check to see if we have samples that I can give him to last the rest of the year. History of Present Illness Reason for Consultation: Atrial fibrillation with rapid heart rate, cardiomyopathy Attending Physician: Kevyn Sanchez MD History of Present Illness This is a 70-year-old male with a history of hypertension, dyslipidemia, prediabetes and known nonobstructive coronary artery disease. He had catheterization in December 2004 at [facility] in [facility] where only luminal irregularities of the proximal and distal LAD as well as in the distal circumflex and right posterolateral artery were identified. His ejection fraction was 30% at the time. This was therefore felt to be nonischemic. He did have a stress echo in June 2010 where his ejection fraction was 35 to 40%. I do not believe ischemia was identified. He had preoperative testing done in November 2024 where on electrocardiography December 21, 2024 atrial fibrillation was identified with a heart rate of 116 bpm. He was seen in the office subsequently and was started on Xarelto, he was on carvedilol which was continued and digoxin 0.125 mg daily was added. Losartan 100 mg daily was continued. He presents now to the emergency room on April 10, 2025 with symptoms of shortness of breath for the last several weeks. His initial evaluation included a BNP which is elevated and a chest x-ray suggesting CHF. He also had large pleural effusions as well as anasarca on abdominal CT. He was admitted and diuresed. An echocardiogram done April 10, 2025 shows severe left ventricular dysfunction with an ejection fraction of 20 to 25%, moderate concentric left ventricular hypertrophy as well as severe biatrial enlargement. He had mild to moderate mitral regurgitation. His presenting electrocardiogram shows atrial fibrillation with a rapid heart rate at 136 bpm. 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 I am not sure when he developed atrial fibrillation, possibly it occurred earlier in the summer although was not diagnosed until November. He is quite noncompliant with medical therapy, he took one of his digoxin pills and then stopped taking it because it made him sick, he did not take anticoagulation because it was expensive and he had relatives on warfarin and did not want to take that. He has therefore not had adequate rate control and has not been on an anticoagulant. Allergies Allergy/AdvReac Type Severity Reaction Status Date / Time pollen extracts Allergy Mild Congested Verified 03/11/25 13:01 Home Medications Medication Instructions Recorded Confirmed Type acetaminophen 650 mg 650 mg PO UD PRN Pain 01/22/21 04/10/25 History tablet,extended release (Tylenol Arthritis Pain) fluocinonide 0.05 % topical cream 1 applic topical UD PRN EXZEMA 01/22/21 04/10/25 History loratadine 10 mg capsule 10 mg PO DAILY PRN SEASONAL 01/22/21 04/10/25 History ALLERGIES atorvastatin 10 mg tablet 10 mg PO QAM #90 tabs 07/23/24 04/10/25 Rx carvedilol 25 mg tablet 25 mg PO BID 01/18/25 04/10/25 History losartan 100 mg tablet 100 mg PO QAM 01/18/25 04/10/25 History pantoprazole 40 mg tablet,delayed 40 mg PO BID 01/18/25 04/10/25 History release Patient History Medical History A-fib pt reports he was sent the [facility] Emergency Room after having his preop ekg and was told him he had a a.fib/abnormal ekg - he thinks it was because he had "lots of coffee" that morning - pt states he was to start on xarelto and pt refused xarelto due to cost, states he was switched to metoprolol but did not like the way it made him feel so he went back to his orginal script of carvedilol from his pcp. pt denies any chest pain/palpitations/sob at this time. CAD (coronary artery disease) LVH (left ventricular hypertrophy) Hypertension History of dysphagia Expected difficult intubation severely limited cervical extension s/p cervical spine surgery, small oral opening and Mallampati 3. History of colon polyps Hyperlipidemia History of anesthesia reaction very combative after cervical fusion Ileitis hx - resolved. Acid reflux controlled, stable per pt Inguinal hernia stable per pt Lumbosacral radiculopathy at S1 Essential hypertension controlled, stable per pt Cardiomyopathy, nonischemic EF < 40% per remote records BMI 31.0-31.9,adult Surgical History H/O oral surgery (01/29/25) Excision of Cyst, Necrotic Bone and Teeth, Lower Right Jaw - Deni Lazcano, DMD S/P knee replacement LEFT 01/2023 History of esophagogastroduodenoscopy (EGD) Hx of colonoscopy History of cardiac cath 2005 ? , HIGH BLOOD PRESSURE...NO STENTS History of total knee replacement 2001, RIGHT History of fusion of cervical spine 1970 AND 1971/ LIMITED ROM History of cataract surgery BILATERAL Family History Father Throat cancer Alcohol abuse Cardiac disorder Hypertension Myocardial infarction Sister Alcohol abuse Other Family history of diabetes mellitus Denies family history of Ovarian cancer Prostate cancer Breast cancer Colorectal cancer Social History Smoking Status: Current every day smoker Tobacco Type: Cigars Age Started Using Tobacco: 16; Cigarettes Per Day: 5-6 cigars per week; Second Hand Exposure: Yes (IN THE PAST); Do You Dip or Chew Tobacco: No (HX OF , NOT CURRENT); Hx Alcohol Use: Yes Alcohol type: beer Alcohol Intake Frequency: 4 or More x per/Week Alcohol Intake Frequency Comment: 5 PER DAY/30 PER WEEK Hx Substance Use: No Preferred Language: Tamazight Communication Ability: Effective Visual Impairment: No Limitations Hearing Ability: Hard of Hearing Summer Law Clerk Required: No Beliefs That Will Affect Care: None marital status: Current Living Situation: Alone current occupational status: employed current occupation: SELF EMPLOYED, contractor How many Children do You have: 2 Other Information That Helps Us Care for You: No Feels Safe at Home: Yes Safety Concerns: Feels Safe At This Time Childhood Exposure to Second-Hand Smoke: Yes Diet: regular caffeine: Yes during the past year weight has: decreased > 10 lbs Dental Care, Regularly: Yes Physical Activity Frequency: 5-6 Times per Week Seatbelt Use: never Sunscreen Use: No Assistive Devices: None Review of Systems Review of Systems: All systems reviewed & are unremarkable except as noted in HPI & below Physical Exam Physical Exam: Constitutional: Alert, cooperative and in no distress. I met him as he was walking around in the room without seeming to be in distress. HEENT: Unremarkable Neck: No jugular venous distention, carotid pulses are irregular but otherwise normal and equal bilaterally without bruits. Pulmonary: Clear to auscultation bilaterally, slight decreased breath sounds at the bases. Cardiac: Irregular rhythm with no murmur, gallop or rub. Abdomen: Soft, nontender with normal bowel sounds. Extremities: No edema. Neurologic: No focal findings. Gait is steady. Skin: No rash, ecchymoses or petechiae. Results & Data Vital Signs (Past 12 Hours) Vital Signs Temp Pulse Pulse Resp BP BP Pulse Ox 04/11/25 11:23 36.6 C 117 H 20 110/81 92 04/11/25 10:08 130 H 114/80 94 04/11/25 09:13 97 04/11/25 09:00 97 04/11/25 08:36 04/11/25 07:54 36.3 C L 83 20 132/88 96 04/11/25 07:33 103 H 04/11/25 06:52 101 H 04/11/25 03:07 36.3 C L 108 H 18 126/85 97 04/11/25 00:58 123 H O2 Del Method O2 Flow Rate 04/11/25 11:23 Room Air 04/11/25 10:08 Room Air 04/11/25 09:13 Nasal Cannula 1 04/11/25 09:00 Nasal Cannula 2 04/11/25 08:36 Nasal Cannula 2 04/11/25 07:54 Nasal Cannula 3 04/11/25 07:33 04/11/25 06:52 04/11/25 03:07 Nasal Cannula 2.5 04/11/25 00:58 Laboratory Results Cardiac Enzymes 04/11/25 Range/Units 05:22 B-Natriuretic Peptide 1383 H (0-100) pg/ml Coagulation 04/11/25 Range/Units 05:22 B-Natriuretic Peptide 1383 H (0-100) pg/ml CBC 04/11/25 Range/Units 05:22 WBC 7.82 (4.8-10.8) K/ul RBC 4.20 L (4.70-6.10) M/uL Hgb 13.0 L (14.0-18.0) g/dL Hct 38.8 L (42.0-52.0) % Plt Count 139 (130-400) K/uL Comprehensive Metabolic Panel 04/10/25 04/11/25 Range/Units 20:00 05:22 Sodium 145 144 (136-145) mmol/L Potassium 3.2 L 3.3 L (3.5-5.1) mmol/L Chloride 104 102 (98-107) mmol/L Carbon Dioxide 28 31 (21-32) mmol/L BUN 9 12 (6-23) mg/dl Creatinine 0.93 1.07 (0.6-1.4) mg/dl Glucose 114 H 95 (70-99(Fasting)) mg/dl Calcium 7.2 L 6.6 L (8.6-10.3) mg/dl Intake and Output 04/10/25 04/11/25 04/11/25 22:59 06:59 14:59 Intake Total 200 / 1075.833 875.833 / 1075.833 200 / 200 Output Total 1125 / 2100 975 / 2100 Balance -925 / -1024.167 -99.167 / -1024.167 200 / 200 Intake: IV 625.833 / 625.833 200 / 200 Magnesium Sulfate / D5w 1 gm In 270.833 / 270.833 200 / 200 100 ml @ 50 mls/hr IV Q2H ALE[facility] Rx#:[id number] Potassium Chloride / Wtr 10 meq 355.000 / 355.000 In 100 ml @ 100 mls/hr IV Q1H [facility]LEK Rx#:[id number] Oral 200 / 450 250 / 450 Output: Urine 1125 / 2100 975 / 2100 Other: # Unmeasured Voids 1 Weight 92.193 kg 90.832 kg Weight Measurement Method Standing Scale Standing Scale Diagnostic Findings Telemetry: Atrial fibrillation, the heart rate is typically in the 90 to 100 bpm range, somewhat faster with exertion and is not low. PG Care Time/CCT Total # of Minutes Spent Total Time Spent with Patient: Total time spent is greater than 50% in coordination of care (as documented) at patient's floor/unit and/or counseling patient: Coding Level of Care Code 39585 INT INP/OBS CARE 3/75MIN Diagnoses A-fib I48.91 Nonischemic cardiomyopathy I42.8 Systolic CHF, chronic I50.22 Non-occlusive coronary artery disease I25.10 Anticoagulant long-term use Z79.01
[2025-04-11] MEDS ORDERED: POTASSIUM CHLORIDE CRTAB 20 MEQ TABCR PO ONE (14:00)
[2025-04-11] MEDS: POTASSIUM CHLORIDE CRTAB 20 MEQ TABCR PO ONE (15:07)
[2025-04-11] MEDS: EMPAGLIFLOZIN 10 MG TAB PO SCH (15:09)
[2025-04-11] MEDS: SPIRONOLACTONE 25 MG TAB PO SCH (15:10)
--- NOTE | 2025-04-11 16:51 | Electrocardiogram Report ---
Test Reason : Blood Pressure : */* mmHG Vent. Rate : 136 BPM Atrial Rate : * BPM P-R Int : * ms QRS Dur : 94 ms QT Int : 366 ms P-R-T Axes : * 12 247 degrees QTcB Int : 550 ms Poor data quality, interpretation may be adversely affected Atrial fibrillation with rapid ventricular response with premature ventricular or aberrantly conducte d complexes Septal infarct (cited on or before 21-Dec-2024) Abnormal ECG When compared with ECG of 21-Dec-2024 13:20, T wave inversion now evident in Lateral leads Confirmed by Dario Sifuentes ([id number]) on 04/11/2025 4:51:17 PM Referred By: REFERRED SELF Confirmed By: Dario Sifuentes
[2025-04-11] MEDS: APIXABAN 5 MG TABLET PO SCH (20:13)
[2025-04-11] MEDS: METOPROLOL SUCC 50MG EXT REL TAB PO SCH (20:13)
[2025-04-12 06:28] LABS: Anion Gap 9.0 (3-11); Blood Urea Nitrogen 11.0 mg/dl (6-23); Calcium 7.0 mg/dl (8.6-10.3); Carbon Dioxide 32.0 mmol/L (21-32); Chloride 102.0 mmol/L (98-107); Creatinine Clr Calc Pharmacy 93.0 ml/min; Glucose 90.0 mg/dl (70-99(Fasting)); Magnesium 1.6 mg/dl (1.7-2.4); Potassium 3.4 mmol/L (3.5-5.1); Sodium 143.0 mmol/L (136-145)
[2025-04-12] MEDS: MAGNESIUM SULFATE / D5W 1 GM/100 ML BAG IV ONE (08:31)
[2025-04-12] MEDS: POTASSIUM CHLORIDE CRTAB 20 MEQ TABCR PO STA (08:34)
--- NOTE | 2025-04-12 10:08 | XRay Report ---
XR chest 1V portable HISTORY: 70 years-old Male reassess acute shortness of breath COMPARISON: CTA chest and chest radiograph 04/10/2025 TECHNIQUE: AP view of the chest FINDINGS: Cardiac silhouette is enlarged. Pulmonary vascular congestion with slightly improved interstitial coa rsening. Pulmonary emphysema. Persistent layering pleural effusions with bibasilar consolidation, als o improved from prior. The bones appear grossly intact. IMPRESSION: 1. Cardiomegaly with improving pulmonary edema. 2. Right greater than left pleural effusions with improved bibasilar consolidation. ACT 112: Negative or not required by law. The above report was generated using voice recognition software. It may contain grammatical, syntax o r spelling errors. Electronically signed by: Mumtaz Greene M.D. 04/12/2025 10:06 AM
--- NOTE | 2025-04-12 10:47 | Hospitalist Progress Note ---
"Date of Service April 12, 2025 Assessment & Plan (1) Acute CHF: (2) A-fib: (3) Hypertension: (4) Hyperlipidemia: (5) Constipation: Plan This is a 70 year old gentleman with past medical history of A fib, HTN, HLD, GERD who presented to the ED on 04/10/2025 for SOB. #Acute HFrEF | A fib | HTN w/ 2 weeks of SOB and worsening a few days prior to arrival. Diagnosed w/ A fib in January 2025 where EF was 55-60% at that time on echo. Is not compliant with medications at home. Chest CTA w/ similar presentation & negative for PE/ CXR w/ layering pleural effusions on admission but repeat 04/12 notes improvement; Trop negative. BNP elevated at 1616 w/ improvement to 1383. Tachycardic in ED & overnight w/ rates up to 170s. s/p 1x 5mg IV Lopressor x3 and IV Digoxin x 2. Remains tachycardic 04/11 AM w/ rates hitting 170s w/ ambulation. Pt is asymptomatic. s/p Lasix 40mg IV --> continue Lasix 40mg IV BID17 dosing on admission. Monitor I&O's, standing daily weights. Echo updated: EF 20-25%. Severe global hypokinesis; severe LA & RA enlargement. mild-mod mitral regurg; mild tricuspid regurg, dilated IVC w/ reduced collapsibility. Given echo findings & inability to adequately control HR cardiology consulted --> Switch from Carvedilol/Digoxin to Metoprolol succinate 100mg BID. plan for cardioversion after a month of anticoagulation; started on Eliquis. Switch from Losartan to Entresto, add Jardiance & Spironolactone. Can continue to diurese. Cardiology will supply samples/coupons to help w/ medication compliance in outpatient setting. #Abdominal pain | Constipation suspect underlying abdominal pain is related to constipation. CTAP w/ nonspecific wall thickening of rectum Start Miralax 17gm once daily, encourage compliance. outpatient GI referral for a colonoscopy. #Hypokalemia | Hypomagnesemia. K low at 3.3 on arrival, s/p 60meq K low at 3.4 & Mag low at 1.6 despite repletion overnight. Additional PO K repletion & IV mag ordered. Repeat BMP & Mag in AM. #HLD - statin #GERD - PPI DVT prophylaxis: Paul Code: DNR/DNI Admission and Anticipated Discharge Date Admission Date: April 10, 2025 Supervising Physician Co-Signing Physician Notes The patient was not seen by me. The chart was reviewed. Case discussed with GABRIEL Marie. Agree with assessment and plan Subjective Melvin was seen & examined this morning. He feels well today. Reports shortness of breath has improved. States he was able to walk the halls. Did have low oxygen overnight as low as 82% and require supplemental oxygen. overnight pulse ox set for this evening. denied any CP. is hoping to return home tomorrow. Physical Exam Physical Exam: General: NAD, VS: BP 124/84; P72; R19; T36.4C Resp: normal respiratory effort, lungs clear to auscultation, diminished at bases b/l CV: tachycardic, irregularly irregular Extremities: Moves all extremities, no edema Neuro: A&O x3 Skin: intact, no lesions noted Results & Data Results & Data Vital Signs (Past 12 Hours) Vital Signs Temp Pulse Pulse Resp BP BP Pulse Ox 04/12/25 08:06 36.5 C 102 H 19 114/76 94 04/12/25 08:02 36.5 C 73 20 105/69 92 04/12/25 07:34 100 H 04/12/25 07:28 04/12/25 03:46 36.3 C L 91 H 18 126/84 97 04/12/25 02:02 95 04/12/25 01:40 83 L 04/11/25 23:50 36.4 C L 97 H 18 121/84 92 O2 Del Method O2 Flow Rate 04/12/25 08:06 Room Air 04/12/25 08:02 Room Air 04/12/25 07:34 04/12/25 07:28 Room Air 04/12/25 03:46 Nasal Cannula 2 04/12/25 02:02 Nasal Cannula 2 04/12/25 01:40 Room Air 04/11/25 23:50 Room Air PG Care Time/CCT Total # of Minutes Spent Total Time Spent with Patient: Total time spent is greater than 50% in coordination of care (as documented) at patient's floor/unit and/or counseling patient: Coding Level of Care Code 31761 SUB INP/OBS CARE 2/35MIN Diagnoses Acute CHF I50.9 A-fib I48.91 Primary hypertension I10 Hypertension type: primary hypertension Mixed hyperlipidemia E78.2 Hyperlipidemia type: mixed hyperlipidemia Constipation K59.00 (3) Hypertension Hypertension type: primary hypertension Qualified Code(s): I10 - Essential (primary) hypertension (4) Hyperlipidemia Hyperlipidemia type: mixed hyperlipidemia Qualified Code(s): E78.2 - Mixed hyperlipidemia"
--- NOTE | 2025-04-12 11:55 | Cardiology Progress Note ---
Date of Service April 12, 2025 Assessment & Plan (1) A-fib: (2) Nonischemic cardiomyopathy: (3) Systolic CHF, chronic: (4) Non-occlusive coronary artery disease: (5) Anticoagulant long-term use: Plan 1. Atrial fibrillation: He has probably been in atrial fibrillation for at least 4 months, I am not sure if it is paroxysmal or persistent, likely persistent. His heart rate may not be adequately controlled although heart rates after his diagnosis in November (based on pulse) have not been fast, here his heart rate is somewhat fast although not markedly so. I did switch his beta-spencer from carvedilol to metoprolol succinate hoping to improve rate control, is probably too early to tell. He was on anticoagulation with Xarelto but I have switched him to Eliquis. Unfortunately he was not on anticoagulation on presentation (he chose not to take it) therefore our options for treating his atrial fibrillation are limited. I would like to perform cardioversion to see whether we can get him back into sinus rhythm and see whether he maintains that, but we cannot do that safely without a month of anticoagulation unless we do WICHO which I would prefer not to do. My plan would be to wait a month after anticoagulation and convert the rhythm without antiarrhythmic therapy. 2. Cardiomyopathy: He has a longstanding cardiomyopathy, that appears to have worsened recently and is likely what prompted his presentation. As an outpatient he has been on carvedilol 25 mg twice a day and losartan 100 mg daily. We should optimize his heart failure regimen. It sounds as though he has not been on Entresto and he does not recognize Jardiance or Farxiga. I do not know that he can afford these but they would be good for him to be on. He is a good candidate for spironolactone as well (low potassium). I have started him on spironolactone, Jardiance and switched losartan to Entresto (first dose of Entresto will be tonight). At least for the time being we can provide samples of Eliquis and I gave him a 1 month supply, for the generic medications I imagine he can get at the pharmacy. I am not sure what kind of evaluation he has had for reversible causes of cardiomyopathy but I suspect we should test for some of these at this point, even though the yield is probably low. 3. Congestive heart failure: This is probably a combination of his atrial fibrillation and his cardiomyopathy leading to fluid retention. His weight is not significantly elevated suggesting that he has lost body mass over the last several years and replaced it with fluid. He notes that he has lost weight and muscle mass this last year. We will have to establish a dry weight. I believe he requires continued diuresis although he is not grossly fluid overloaded currently. 4. Coronary artery disease: He has known coronary disease based on catheterization, that was many years ago but he has been maintained on low-dose atorvastatin. His high-sensitivity troponin on presentation this visit was normal so I do not suspect an ischemic event. The most recent cholesterol measurement that I see was in March 2024 and it was 139, his HDL at that time was 70. His non-HDL cholesterol was therefore 69, which is quite good. He could have had progression of his coronary artery disease but we do not have evidence for that. 5. Anticoagulation: I discussed anticoagulation with him at length, he had relatives on warfarin and does not want to take that, there were cost issues and so he did not take the Xarelto. He is getting a different kind of insurance in the new year and I believe he has Medicare part D so hopefully he can take these drugs next year, even though he may have to pay a lot in the initial part of the year until he meets his deductible. I did start him on Eliquis and and I gave him samples to last the rest of the year. Admission and Anticipated Discharge Date Admission Date: April 10, 2025 Subjective He is feeling well today, he has been up and around in the hallway and can walk much better than when he came in. I am not sure he is back to normal but he definitely feels better. No exertional chest discomfort and no orthopnea or PND or peripheral edema. Physical Exam Physical Exam: Constitutional: Alert, cooperative and in no distress. I saw him as he was walking around in the room without seeming to be in distress. HEENT: Unremarkable Neck: No jugular venous distention, carotid pulses are irregular but otherwise normal and equal bilaterally without bruits. Pulmonary: Clear to auscultation bilaterally, slight decreased breath sounds at the bases. Cardiac: Irregular rhythm with no murmur, gallop or rub. Abdomen: Soft, nontender with normal bowel sounds. Extremities: No edema. Neurologic: No focal findings. Gait is steady. Skin: No rash, ecchymoses or petechiae. Results & Data Vital Signs (Past 12 Hours) Vital Signs Temp Pulse Pulse Resp BP BP Pulse Ox 04/12/25 08:06 36.5 C 102 H 19 114/76 94 04/12/25 08:02 36.5 C 73 20 105/69 92 04/12/25 07:34 100 H 04/12/25 07:28 04/12/25 03:46 36.3 C L 91 H 18 126/84 97 04/12/25 02:02 95 04/12/25 01:40 83 L O2 Del Method O2 Flow Rate 04/12/25 08:06 Room Air 04/12/25 08:02 Room Air 04/12/25 07:34 04/12/25 07:28 Room Air 04/12/25 03:46 Nasal Cannula 2 04/12/25 02:02 Nasal Cannula 2 04/12/25 01:40 Room Air Laboratory Results Comprehensive Metabolic Panel 04/12/25 Range/Units 05:30 Sodium 143 (136-145) mmol/L Potassium 3.4 L (3.5-5.1) mmol/L Chloride 102 (98-107) mmol/L Carbon Dioxide 32 (21-32) mmol/L BUN 11 (6-23) mg/dl Creatinine 0.85 (0.6-1.4) mg/dl Glucose 90 (70-99(Fasting)) mg/dl Calcium 7.0 L (8.6-10.3) mg/dl Intake and Output 04/11/25 04/12/25 04/12/25 22:59 06:59 14:59 Intake Total 1500 / 2560 400 / 2560 100 / 100 Output Total 1850 / 4950 1300 / 4950 Balance -350 / -2390 -900 / -2390 100 / 100 Intake: IV 100 / 100 Magnesium Sulfate / D5w 1 gm In 100 / 100 100 ml @ 50 mls/hr IV ONE ONE Rx#:[id number] Oral 1500 / 2360 400 / 2360 Output: Urine 1850 / 4950 1300 / 4950 Other: Weight 87.7 kg Weight Measurement Method Standing Scale Diagnostic Findings Telemetry: Atrial fibrillation, rate a bit fast averaging around 100 but below that for a good bit of the time. PG Care Time/CCT Total # of Minutes Spent Total Time Spent with Patient: Total time spent is greater than 50% in coordination of care (as documented) at patient's floor/unit and/or counseling patient: Coding Level of Care Code 15663 SUB INP/OBS CARE 350MIN Diagnoses A-fib I48.91 Nonischemic cardiomyopathy I42.8 Systolic CHF, chronic I50.22 Non-occlusive coronary artery disease I25.10 Anticoagulant long-term use Z79.01
[2025-04-12] MEDS ORDERED: DIGOXIN 0.125 MG TAB PO SCH (16:00)
[2025-04-12] MEDS: VALSARTAN/SACUBITRIL 51/49 MG TAB PO SCH (20:23)
[2025-04-13] MEDS ORDERED: MELATONIN 3 MG TAB PO PRN (00:28)
[2025-04-13 07:04] LABS: Anion Gap 11.0 (3-11); Blood Urea Nitrogen 11.0 mg/dl (6-23); Calcium 7.4 mg/dl (8.6-10.3); Carbon Dioxide 30.0 mmol/L (21-32); Chloride 102.0 mmol/L (98-107); Creatinine Clr Calc Pharmacy 85.7 ml/min; Glucose 94.0 mg/dl (70-99(Fasting)); Potassium 3.6 mmol/L (3.5-5.1); Sodium 143.0 mmol/L (136-145)
[2025-04-13 07:35] VITALS: RESP 20; TEMP 97.3; O2SAT 92
--- NOTE | 2025-04-13 11:26 | Discharge Summary ---
"Discharge Summary Date of Service April 13, 2025 Principal Dx & Hospital Course #1 = Principal Diagnosis (1) Acute CHF: (2) A-fib: (3) Hypertension: (4) Hyperlipidemia: (5) Constipation: Plan This is a 70 year old gentleman with past medical history of A fib, HTN, HLD, GERD who presented to the ED on 04/10/2025 for SOB. #Acute HFrEF | A fib | HTN w/ 2 weeks of SOB and worsening a few days prior to arrival. Diagnosed w/ A fib in January 2025 where EF was 55-60% at that time on echo. Is not compliant with medications at home. Chest CTA w/ similar presentation & negative for PE/ CXR w/ layering pleural effusions on admission but repeat 04/12 notes improvement Trop negative. BNP elevated at 1616 on admission w/ improvement to 1383 after 1 day of diuresis. Echo updated: EF 20-25%. Severe global hypokinesis; severe LA & RA enlargement. mild-mod mitral regurg; mild tricuspid regurg, dilated IVC w/ reduced collapsibility. Given echo findings & inability to adequately control HR cardiology consulted --> Switch from Carvedilol/Digoxin to Metoprolol succinate 100mg BID. plan for cardioversion after a month of anticoagulation; started on Eliquis. Switch from Losartan to Entresto, add Jardiance & Spironolactone.Cardiology will supply samples/coupons to help w/ medication compliance in outpatient setting. Discharge home on Lasix 40mg daily w/ potassium & magnesium supplement. CHF program referral placed at time of discharge. #Abdominal pain | Constipation suspect underlying abdominal pain is related to constipation. CTAP w/ nonspecific wall thickening of rectum Start Miralax 17gm once daily, encourage compliance. outpatient GI referral for a colonoscopy. #Hypokalemia | Hypomagnesemia. - resolved K now stable at 3.6, Mag 1.6 s/p repletion #HLD - statin #GERD - PPI Patient discharged home Admission HPI Per Admitting Provider This is a 70 year old gentleman with past medical history of A fib, HTN, HLD, GERD who presented to the ED on 04/10/2025 for SOB. Melvin was seen & examined this afternoon. He reports that he has had progressive SOB w/ activity for the last ~ 2 weeks. He reports the past few days it has worsened and this morning he was unable to walk into the hospital secondary to his SOB. He denies any associated cough, chest pain, fevers, or chills. Reports this has never happened to him in the past. He states that he is not compliant with his medications at home. States he takes his AM meds daily but often misses his night time medications. Believes he has been tried on metoprolol succinate in the past & it caused him an upset stomach. Denies any palpitations. States he sees his test desk trouble locator at the end of this month. 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 Reports abdominal pain & constipation. states he did have a BM this morning but has been struggling to move his bowels. States he used milk of mag & molasses at home one time with relief. Denies any vomiting but reports occasional nausea. Denies any lower extremity edema. While in the ED, his workup was consistent with an acute exacerbation of CHF. His CXR was consistent with layering pleural effusions w/ dependent consolidation. Chest CTA was negative for PE but consistent w/ R > L pleural effusions w/ dependent consolidation. CTAP w/ nonspecific wall thickening of rectum & fluid overload w/ pleural effusions, anasarca & trace ascites. His CBC was unremarkable. BMP w/ low K of 3.3 but renal function stable. TB elevated at 1.1 with the remainder of LFTs WNL. BNP elevated at 1616 w/ no prior hx of comparison. Troponin negative at 12.7. He was given IV Lasix in the ED & potassium replacement. Code discussion did take place with the patient & he does confirm that he is a DNR/DNI Discharge Exam General: NAD, VS: BP 121/83; P100; R20; T36.3C Resp: normal respiratory effort Extremities: Moves all extremities, no edema Neuro: A&O x3 Skin: intact, no lesions noted Discharge Plan Discharge Items Patient Disposition: Home - Self-Care Reason For Visit: SOB Discharge Diagnosis: Acute Congestive Heart Failure, Atrial Fibrillation Activity: Resume your previous activity Non-emergency contact: Primary Care Provider Call non-emergency contact if: you have any medication questions and your symptoms worsen Follow-up/Referrals: Justin Tang DO [Physician] - Dario Sifuentes MD [Physician] - Aaron Miller III, CRNP [Primary Care Provider] - Diet: Heart Healthy Addtl Attending Provider Instructions: Mr. Hatfield, You were recently hospitalized for shortness of breath. You were found to have acute congestive heart failure and you were in atrial fibrillation. You were seen by cardiology and have multiple medication changes which have been listed below. Medications: Your medication list has been reviewed and reconciled upon discharge to ensure accuracy and continuity of care. An updated list of all your medications is included with your hospital discharge paperwork. Please review this list closely, and make note of any changes. Morning Medications: Atorvastatin 10mg - cholesterol Lasix 40mg - fluid pill for your heart Potassium 20meq Magnesium Oxide 400mg Spironolactone 25mg - fluid pill for your heart Metoprolol Succinate 100mg - to control your heart rate and blood pressure Entresto 51/49mg - to help with blood pressure and your heart failure Eliquis 5mg - blood thinning medication Jardiance 10mg - for heart failure Pantoprazole 40mg - for acid reflux Chlorhexidine Gluconate mouth wash Evening Medications: Pantoprazole 40mg - acid reflux Metoprolol Succinate 100mg - to control your heart rate and blood pressure Eliquis 5mg - blood thinning medication Entresto 51/49mg - to help with blood pressure and your heart failure Chlorhexidine Gluconate mouth wash Carvedilol and Losartan have been discontinued. You should likely be on a medication such as Miralax to help with your bowel movements. This is sold over the counter if you are interested in taking this. Please follow up with the GI office as scheduled. Their office phone number is above if you have any questions or concerns. Take your medications as instructed; do not skip a dose of your medicines. Make sure all of your doctors know every medicine you are taking (including [id number] medicines, vitamins, and supplements). Call your primary care provider before taking any new medicines (including over- the-counter medicines, vitamins, and supplements), because some of these may interact with your current medications, or may make your symptoms worse. Tell your primary care provider if you cannot afford your medications. Activity: You can do normal everyday activities as your body allows. Take rest breaks if you feel tired. Do not overexert. Stop activity if you have pain, shortness of breath or feel dizzy. Follow-up appointments: Make an appointment with your primary care physician within one week of discharge. A copy of this summary will be sent to them. Every time you see your primary care physician, or any other doctor, bring your medication list, and a list of questions. CONTACT YOUR PRIMARY CARE PROVIDER if you experience any of the following: Shortness of breath or difficulty breathing Fevers or chills Feeling tired with normal activity or experiencing dizziness or fainting Difficulty following your treatment plan, or difficulty taking medications CALL 911 OR GO TO THE EMERGENCY DEPARTMENT if you experience any of the following: Severe abdominal pain or nausea/vomiting Severe chest pain, or chest pain that radiates (moves) to your jaw or arm Sudden, severe shortness of breath or difficulty breathing Thank you for allowing us to participate in your care. Pending Studies at Discharge: No Stand-Alone Forms: [facility], Smoking Cessation Medications and DC Order Prescriptions: New Eliquis 5 mg Tablet 5 mg PO BID Qty: 60 0RF metoprolol succinate 50 mg Tablet Extended Release 24 Hr 100 mg PO BID Qty: 60 0RF spironolactone 25 mg Tablet 25 mg PO QAM Qty: 30 0RF sacubitril-valsartan [Entresto] 49-51 mg Tablet 1 tab PO BID Qty: 60 0RF magnesium oxide 400 mg (241.3 mg magnesium) Tablet 400 mg PO QAM Qty: 30 0RF Jardiance 10 mg Tablet 10 mg PO DAILY Qty: 30 0RF potassium chloride 20 mEq tablet,ER particles/crystals 20 meq PO DAILY Qty: 30 0RF furosemide 40 mg tablet 40 mg PO DAILY Qty: 30 0RF Continued atorvastatin 10 mg tablet 10 mg PO QAM Qty: 90 3RF acetaminophen [Tylenol Arthritis Pain] 650 mg Tablet Extended Release 650 mg PO UD PRN (Reason: Pain) loratadine 10 mg Capsule 10 mg PO DAILY PRN (Reason: SEASONAL ALLERGIES) fluocinonide 0.05 % cream 1 applic topical UD PRN (Reason: EXZEMA) pantoprazole 40 mg tablet,delayed release (DR/EC) 40 mg PO BID Rx Instructions: TAKE 1 TABLET BY MOUTH TWICE A DAY Discontinued losartan 100 mg tablet 100 mg PO QAM Rx Instructions: TAKE 1 TABLET BY MOUTH EVERY DAY carvedilol 25 mg Tablet 25 mg PO BID Rx Instructions: must administer with a meal/food Discharge Orders: Discharge Order (Routine); Ordered 04/13/25 Ordered By: Cesilia Verdugo Admission Data Admit Date/Time: 04/10/25 14:10 Attending Provider: Kevyn Sanchez Admit Provider: Kevyn Sanchez Primary Care Provider: Aaron Miller III Other Providers: Dario Sifuentes; Nereida Perez Other Interventions: Discharge Summary Assessment (RN) Last Done: 04/13/25 11:38 Hospital Stay Data Consultations 04/11/25 10:34 Consult Cardiology Routine Diagnostic Imagining Performed 04/10/25 10:52 CT angio chest PE protocol Stat 04/10/25 10:56 CT abd pelvis IV con only Stat Pending Results Patient Have Any Pending Studies at Discharge: No Discharge Instructions Given to Patient (Per Discharging Provider) Mr. Hatfield, Jimenez were recently hospitalized for shortness of breath. You were found to have acute congestive heart failure and you were in atrial fibrillation. You were seen by cardiology and have multiple medication changes which have been listed below. Medications: Your medication list has been reviewed and reconciled upon discharge to ensure accuracy and continuity of care. An updated list of all your medications is included with your hospital discharge paperwork. Please review this list closely, and make note of any changes. Morning Medications: Atorvastatin 10mg - cholesterol Lasix 40mg - fluid pill for your heart Potassium 20meq Magnesium Oxide 400mg Spironolactone 25mg - fluid pill for your heart Metoprolol Succinate 100mg - to control your heart rate and blood pressure Entresto 51/49mg - to help with blood pressure and your heart failure Eliquis 5mg - blood thinning medication Jardiance 10mg - for heart failure Pantoprazole 40mg - for acid reflux Chlorhexidine Gluconate mouth wash Evening Medications: Pantoprazole 40mg - acid reflux Metoprolol Succinate 100mg - to control your heart rate and blood pressure Eliquis 5mg - blood thinning medication Entresto 51/49mg - to help with blood pressure and your heart failure Chlorhexidine Gluconate mouth wash Carvedilol and Losartan have been discontinued. You should likely be on a medication such as Miralax to help with your bowel movements. This is sold over the counter if you are interested in taking this. Please follow up with the GI office as scheduled. Their office phone number is above if you have any questions or concerns. Take your medications as instructed; do not skip a dose of your medicines. Make sure all of your doctors know every medicine you are taking (including [id number] medicines, vitamins, and supplements). Call your primary care provider before taking any new medicines (including over- the-counter medicines, vitamins, and supplements), because some of these may interact with your current medications, or may make your symptoms worse. Tell your primary care provider if you cannot afford your medications. Activity: You can do normal everyday activities as your body allows. Take rest breaks if you feel tired. Do not overexert. Stop activity if you have pain, shortness of breath or feel dizzy. Follow-up appointments: Make an appointment with your primary care physician within one week of discharge. A copy of this summary will be sent to them. Every time you see your primary care physician, or any other doctor, bring your medication list, and a list of questions. CONTACT YOUR PRIMARY CARE PROVIDER if you experience any of the following: Shortness of breath or difficulty breathing Fevers or chills Feeling tired with normal activity or experiencing dizziness or fainting Difficulty following your treatment plan, or difficulty taking medications CALL 911 OR GO TO THE EMERGENCY DEPARTMENT if you experience any of the following: Severe abdominal pain or nausea/vomiting Severe chest pain, or chest pain that radiates (moves) to your jaw or arm Sudden, severe shortness of breath or difficulty breathing Thank you for allowing us to participate in your care. Supervising Physician Co-Signing Physician Notes The patient was not seen by me. The chart was reviewed. Case discussed with GABRIEL Marie. Agree with assessment and plan Total Time Total Time Spent Total Time Spent (In Minutes): 60 Total Time Includes: Examination of the Patient, Discharge Planning and Medication Reconciliation Coding Level of Care Code 68068 INP/OBS DISCH >30 MIN Diagnoses Acute CHF I50.9 A-fib I48.91 Primary hypertension I10 Hypertension type: primary hypertension Mixed hyperlipidemia E78.2 Hyperlipidemia type: mixed hyperlipidemia Constipation K59.00"
[2025-04-13 11:40] VITALS: BP 116/71; PULSE 100
== END 2025-04-13 12:16 | disposition home or self-care (01) | DRG 291 ==
LOC: SUATTDRO → ED 10:01 → 4W 14:10